=== PATIENT | male | born 1980 | race Caucasian/White ===

== ENCOUNTER 2023-09-13 22:16 | Inpatient (IN) | payer OTHER ==
[2023-09-13] MEDS: SODIUM CHLORIDE 0.9% 1,000 ML IV STA ×2 (22:40→23:05)
[2023-09-13 22:43] LABS: Basophils # (A) 0.1 k/uL (0-0.2); Basophils % (A) 2 %; Eosinophils # (A) 0.1 k/uL (0-0.7); Eosinophils % (A) 3 %; HCT 39.7 % (39.0-53.0); HGB 13.3 gm/dL (13.0-17.5); Lymphocytes # (A) 0.6 k/uL (1.0-4.8); Lymphocytes % (A) 19 %; MCH 34.4 pg (25.0-35.0); MCHC 33.6 g/dL (31.0-37.0); MCV 102.5 fL (80.0-100.0); Macrocytosis Slight; Mean Platelet Volume 10.1; Monocytes # (A) 0.3 k/uL (0-1.0); Monocytes % (A) 9 %; Neutrophils # (A) 2.2 k/uL (1.3-7.7); Neutrophils % (A) 65 %; RBC 3.87 m/uL (4.30-5.90); RDW 13.5 % (11.5-15.5); WBC 3.3 k/uL (3.8-10.6)
[2023-09-13] MEDS: LORazepam 2 MG/ML INJ IV STA ×2 (22:46→23:16)
[2023-09-13] MEDS: THIAMINE 100 MG/ML 2 ML VIAL IM STA (22:47)
--- NOTE | 2023-09-13 22:56 | ED ---
General Adult HPI - General Chief complaint: Alcohol Stated complaint: DT'S Time Seen by Provider: 09/13/23 22:21 Source: patient, EMS, RN notes reviewed, old records reviewed Mode of arrival: EMS - History of Present Illness Initial comments: Patient is a 43-year-old male who presents emergency department for alcohol withdrawals. Has a history of DTs. Last drink was 36 hours ago. He is not withdrawing from any other drugs at this time. States he was receiving oral Ativan which is the most they can do at [facility] however withdrawal symptoms seem to not be improving which is why presents for further evaluation at this time. Endorses mild nausea, occasional blurry vision, but denies any headaches. Endorses tremors. Endorses feeling weak. Has no other acute complaints at this time. Presents for further evaluation. Denies chest pain, abdominal pain, diarrhea, fevers, chills, cough. - Related Data Allergies Allergy/AdvReac Type Severity Reaction Status Date / Time No Known Allergies Allergy Verified 09/13/23 22:38 Review of Systems ROS Statement: Those systems with pertinent positive or pertinent negative responses have been documented in the HPI. Review of Systems: CONST: Denies fever EYES: Denies blurry vision ENT: Denies nasal congestion C/V: Denies Chest pain RESP: Denies shortness of breath GI: Endorses nausea : Denies dysuria SKIN: Denies rash. MSK: Denies joint pain. NEURO: Denies headache ROS Other: All systems not noted in ROS Statement are negative. Past Medical History Past Medical History: Hypertension Additional Past Medical History / Comment(s): pancreatitis History of Any Multi-Drug Resistant Organisms: None Reported Past Surgical History: Orthopedic Surgery Past Psychological History: ADD/ADHD Smoking Status: Never smoker Past Alcohol Use History: Abuse, Daily Past Drug Use History: Marijuana General Exam - General Exam Comments Initial Comments: General: Appears in no acute distress. HEAD: Normal with no signs of head trauma. EYES: PERRLA, EOMI, conjunctiva normal, no discharge. ENT: Hearing grossly intact, normal oropharynx. RESPIRATORY: Clear breath sounds bilaterally. No wheezes, rales, or rhonchi. C/V: Tachycardic. S1 and S2 auscultated, no edema, peripheral pulses 2+ and intact throughout ABD: Abd is soft, nontender, nondistended EXT: Normal range of motion, no obvious deformity SKIN: No rashes or lesions observed on exposed skin. NEURO: Alert and oriented x 4. Tremors in the peripheral extremities. No obvious tongue fasciculations. Course Vital Signs 09/13/23 22:20 Temperature 99.0 F Pulse Rate 114 H Respiratory 18 Rate Blood Pressure 121/90 O2 Sat by Pulse 95 Oximetry Medical Decision Making - Medical Decision Making Was pt. sent in by a medical professional or institution (, ANDREW, RESERVATIONIST, urgent care, hospital, or longterm...) When possible be specific @ -Sent from [facility] for evaluation for alcohol withdrawals. Did you speak to anyone other than the patient for history (EMS, parent, family, police, friend...)? What history was obtained from this source @ -No Did you review nursing and triage notes (agree or disagree)? Why? @ -I reviewed and agree with nursing and triage notes Were old charts reviewed (outside hosp., previous admission, EMS record, old EKG, old radiological studies, urgent care reports/EKG's, longterm records)? Report findings @ -Old charts reviewed Differential Diagnosis (chest pain, altered mental status, abdominal pain women, abdominal pain men, vaginal bleeding, weakness, fever, dyspnea, syncope, headache, dizziness, GI bleed, back pain, seizure, CVA, palpatations, mental health, musculoskeletal)? @ -Alcohol withdrawals, electrolyte abnormalities, DTs. This list is not all inclusive. EKG interpreted by me (3pts min.). @ -As above X-rays interpreted by me (1pt min.). @ -None done CT interpreted by me (1pt min.). @ -None done U/S interpreted by me (1pt. min.). @ -None done What testing was considered but not performed or refused? (CT, X-rays, U/S, labs)? Why? @ -None What meds were considered but not given or refused? Why? @ -None Did you discuss the management of the patient with other professionals (professionals i.e. ANDREW Rodríguez, RESERVATIONIST, lab, RT, psych nurse, addiction social worker, health service worker, teacher, civilian jail officer, assistant program manager)? Give summary @ -I spoke with NILSA Cross of [facility] who is city call who admitted and agreed to accept the patient. Was smoking cessation discussed for >3mins.? @ -No Was critical care preformed (if so, how long)? @ -No Were there social determinants of health that impacted care today? How? (Homelessness, low income, unemployed, alcoholism, drug addiction, transportatio n, low edu. Level, literacy, decrease access to med. care, nursing home, rehab)? @ -No Was there de-escalation of care discussed even if they declined (Discuss DNR or withdrawal of care, Hospice)? DNR status @ -No What co-morbidities impacted this encounter? (DM, HTN, Smoking, COPD, CAD, Cancer, CVA, ARF, Chemo, Hep., AIDS, mental health diagnosis, sleep apnea, morbid obesity)? @ -None Was patient admitted / discharged? Hospital course, mention meds given and route, prescriptions, significant lab abnormalities, going to OR and other pertinent info. @ -Based on patient's presentation and physical exam, presents with CIWA of approximately 10-12. Patient will be administered IV Ativan, 1 L fluid bolus and we will obtain laboratory studies and screening EKG. He was in agreement with this plan. He was placed on CIWA protocol. Patient in agreement with this plan. He will likely be admitted. Vital signs remarkable for tachycardia but otherwise within acceptable limits. EKG shows no signs of acute ischemia.Patient's laboratory studies remarkable for hypomagnesemia. Remainder the labs unremarkable. On reevaluation, patient is feeling improved. CIWA remains anywhere from 8 or 9- 11. We will administer additional Ativan and continue to monitor. He will be admitted. He is given IV magnesium. Patient in agreement this plan. I spoke with NILSA Cross of [facility] who is city call who admitted and agreed to accept the patient. Patient admitted on CIWA protocol. Undiagnosed new problem with uncertain prognosis? @ -No Drug Therapy requiring intensive monitoring for toxicity (Heparin, Nitro, Insulin, Cardizem)? @ -No Were any procedures done? @ -No Diagnosis/symptom? @ -Alcohol withdrawals, hypomagnesemia Acute, or Chronic, or Acute on Chronic? @ -Acute Uncomplicated (without systemic symptoms) or Complicated (systemic symptoms)? @ -Complicated Side effects of treatment? @ -None Exacerbation, Progression, or Severe Exacerbation] @ -No Poses a threat to life or bodily function? @ -Yes - Lab Data Result diagrams: 09/13/23 22:28 09/13/23 22:28 Lab Results 09/13/23 09/13/23 09/13/23 Range/Units 22:28 22:28 23:10 WBC 3.3 L (3.8-10.6) k/uL RBC 3.87 L (4.30-5.90) m/uL Hgb 13.3 (13.0-17.5) gm/dL Hct 39.7 (39.0-53.0) % MCV 102.5 H (80.0-100.0) fL MCH 34.4 (25.0-35.0) pg MCHC 33.6 (31.0-37.0) g/dL RDW 13.5 (11.5-15.5) % Plt Count 58 L (150-450) k/uL MPV 10.1 Neutrophils % 65 % Lymphocytes % 19 % Monocytes % 9 % Eosinophils % 3 % Basophils % 2 % Neutrophils # 2.2 (1.3-7.7) k/uL Lymphocytes # 0.6 L (1.0-4.8) k/uL Monocytes # 0.3 (0-1.0) k/uL Eosinophils # 0.1 (0-0.7) k/uL Basophils # 0.1 (0-0.2) k/uL Manual Slide Review Performed Large Platelets Present Macrocytosis Slight Sodium 134 L (137-145) mmol/L Potassium 4.2 (3.5-5.1) mmol/L Chloride 100 (98-107) mmol/L Carbon Dioxide 28 (22-30) mmol/L Anion Gap 6 mmol/L BUN 10 (9-20) mg/dL Creatinine 0.75 (0.66-1.25) mg/dL Est GFR (CKD-EPI)AfAm >90 (>60 ml/min/1.73 sqM) Est GFR (CKD-EPI)NonAf >90 (>60 ml/min/1.73 sqM) Glucose 138 H (74-99) mg/dL Calcium 9.2 (8.4-10.2) mg/dL Magnesium 0.8 L* (1.6-2.3) mg/dL Total Bilirubin 1.4 H (0.2-1.3) mg/dL AST 132 H (17-59) U/L ALT 27 (4-49) U/L Alkaline Phosphatase 116 (38-126) U/L Total Protein 7.2 (6.3-8.2) g/dL Albumin 4.1 (3.5-5.0) g/dL Urine Color Light Yellow Urine Appearance Clear (Clear) Urine pH 7.5 (5.0-8.0) Ur Specific [place] 1.007 (1.001-1.035) Urine Protein Trace H (Negative) Urine Glucose (UA) Negative (Negative) Urine Ketones Negative (Negative) Urine Blood Negative (Negative) Urine Nitrite Negative (Negative) Urine Bilirubin Negative (Negative) Urine Urobilinogen <2.0 (<2.0) mg/dL Ur Leukocyte Esterase Negative (Negative) Urine Opiates Screen Not Detected (NotDetected) Ur Oxycodone Screen Not Detected (NotDetected) Urine Methadone Screen Not Detected (NotDetected) Ur Barbiturates Screen Not Detected (NotDetected) U Tricyclic Antidepress Not Detected (NotDetected) Ur Phencyclidine Scrn Not Detected (NotDetected) Ur Amphetamines Screen Not Detected (NotDetected) U Methamphetamines Scrn Not Detected (NotDetected) U Benzodiazepines Scrn Detected H (NotDetected) Urine Cocaine Screen Not Detected (NotDetected) U Marijuana (THC) Screen Not Detected (NotDetected) Serum Alcohol <10 mg/dL - EKG Data -: EKG Interpreted by Me EKG Comments: 12-lead Electrocardiogram Interpretation Note EKG was reviewed and interpreted by myself. 12-lead ECG performed at 2228 is interpreted by me as revealing sinus tachycardia at a rate of 110 beats per minute. Left axis deviation. NH interval is 130 ms, QRS duration is 93 ms, QTc is 391 ms.. There were no ST or T wave abnormalities to suggest myocardial ischemia or injury. R wave progression across the precordium was satisfactory. By my interpretation this EKG is non-diagnostic for acute ischemia. Disposition Clinical Impression: Alcohol withdrawal, Hypomagnesemia Disposition: ADMITTED IP TO THIS [facility] Condition: Serious Referrals: Nonstaff,Physician [Primary Care Provider] - 1-2 days Time of Disposition: 00:15
[2023-09-13 22:57] LABS: ALT 27 U/L (4-49); African American GFR (CKD) >90 (>60 ml/min/1.73 sqM); Albumin 4.1 g/dL (3.5-5.0); Alcohol <10 mg/dL; Anion Gap 6 mmol/L; Blood Urea Nitrogen 10 mg/dL (9-20); Calcium 9.2 mg/dL (8.4-10.2); Carbon Dioxide 28 mmol/L (22-30); Chloride 100 mmol/L (98-107); Glucose 138 mg/dL (74-99); Non-African American GFR(CKD) >90 (>60 ml/min/1.73 sqM); Sodium 134 mmol/L (137-145); Total Bilirubin 1.4 mg/dL (0.2-1.3); Total Protein 7.2 g/dL (6.3-8.2)
[2023-09-13 23:03] LABS: AST 132 U/L (17-59); Alkaline Phosphatase 116 U/L (38-126); Magnesium 0.8 mg/dL (1.6-2.3); Potassium 4.2 mmol/L (3.5-5.1)
[2023-09-13 23:05] LABS: Large Platelets Present; Platelet Count 58 k/uL (150-450)
[2023-09-13] MEDS: ONDANSETRON 4 MG/2 ML VIAL IVP STA (23:05)
[2023-09-13 23:23] LABS: Appearance,Urine Clear (Clear); Bilirubin,Urine Negative (Negative); Blood,Urine Negative (Negative); Color,Urine Light Yellow; Glucose,Urine (UA) Negative (Negative); Ketones,Urine Negative (Negative); Leukocyte Esterase,Urine Negative (Negative); Nitrite,Urine Negative (Negative); PH, Urine 7.5 (5.0-8.0); Protein,Urine Trace (Negative); Specific Gravity,Urine 1.007 (1.001-1.035); Urobilinogen,Urine <2.0 mg/dL (<2.0)
[2023-09-13 23:32] LABS: Amphetamine Screen,Urine Not Detected (NotDetected); Barbiturate Screen,Urine Not Detected (NotDetected); Benzodiazepines Screen,Urine Detected (NotDetected); Cocaine Screen,Urine Not Detected (NotDetected); Methadone Screen, Urine Not Detected (NotDetected); Opiate Screen,Urine Not Detected (NotDetected); Oxycodone Screen, Urine Not Detected (NotDetected); Phencyclidine Screen,Urine Not Detected (NotDetected); Tricyclic Antidepressant,Urine Not Detected (NotDetected); Urn Cannabinoid Scrn Not Detected (NotDetected)
[2023-09-13] MEDS: MAGNESIUM SULFATE-D5W PMX 1 GM in DEXTROSE/WATER 1 100ML.BAG IVPB SCH (23:50)
[2023-09-14] MEDS ORDERED: NALOXONE 0.4 MG/ML 1 ML VIAL IV PRN (00:16)
[2023-09-14] MEDS: LORazepam 2 MG/ML INJ IV STA (00:30)
[2023-09-14] MEDS: LORazepam 2 MG/ML INJ IV PRN ×3 (02:17→10:22)
[2023-09-14] MEDS: chlordiazePOXIDE 25 MG CAP PO SCH (05:34)
[2023-09-14] MEDS: HALOPERIDOL LACTATE 5 MG/ML 1 ML VIAL IVP STA (06:12)
[2023-09-14] MEDS: THIAMINE 100 MG TAB PO SCH (08:28)
[2023-09-14] MEDS: DEXMEDETOMIDINE/0.9% NACL(PMX) 400 MCG in EMPTY BAG 1 BAG IV SCH (10:30)
--- NOTE | 2023-09-14 10:38 | P.CNPUL ---
History of Present Illness Consult date: 09/14/23 Requesting physician: Quinn Ken Reason for consult: other (Critical care management) Chief complaint: Alcohol withdrawal, delirium tremens History of present illness: This is a 43-year-old male patient with a known history of hypertension and pancreatitis and alcohol dependence. He was at [facility] but developed delirium tremens and alcohol withdrawal syndrome and was brought here to the emergency room by EMS last evening. He is seen in consultation in the emergency department. He is currently sedated. He has received 7 mg of Ativan thus far. 1 mg of Haldol. He had remained restless. The plan is to admit to the intensive care unit and utilize Precedex infusion. White count 3.3. Hemoglobin 13.3. MCV 102.5. Platelets 58,000. Sodium 134. Potassium 4.2. Bicarb 28. BUN 10. Creatinine 0.75. Glucose 138. AST 132. ALT 27. Urine drug screen positive for benzodiazepines. Serum alcohol level was less than 10. He is currently maintaining good O2 saturations in the 90s on room air. He is afebrile. Hemodynamically stable. Review of Systems ROS unobtainable: due to mental status Past Medical History Past Medical History: Hypertension Additional Past Medical History / Comment(s): pancreatitis History of Any Multi-Drug Resistant Organisms: None Reported Past Surgical History: Orthopedic Surgery Past Psychological History: ADD/ADHD Smoking Status: Never smoker Past Alcohol Use History: Abuse, Daily Past Drug Use History: Marijuana Medications and Allergies Home Medications Medication Instructions Recorded Confirmed Type Acetaminophen [Tylenol] 650 mg PO Q4H 09/14/23 09/14/23 History Calcium/Magnesium/Zinc/Bere D 1 tab PO TID PRN 09/14/23 09/14/23 History Chlorpheniramine Maleate 4 mg PO Q4H PRN 09/14/23 09/14/23 History [Chlor-Trimeton] Docusate [Colace] 100 mg PO BID PRN 09/14/23 09/14/23 History Hyoscyamine Sulfate [Levsin] 0.125 mg PO QID PRN 09/14/23 09/14/23 History Ibuprofen [Motrin Ib] 600 mg PO Q6H PRN 09/14/23 09/14/23 History LORazepam [Ativan] 1 - 2 mg PO Q4H 09/14/23 09/14/23 History Loperamide HCl [Imodium A-D] 4 mg PO BID PRN 09/14/23 09/14/23 History Mag Hydrox/Aluminum Hyd/Simeth 30 ml PO Q4H PRN 09/14/23 09/14/23 History [Mylanta Maximum Strength Liq] Multivitamins, Thera [Multivitamin 1 tab PO DAILY 09/14/23 09/14/23 History (formulary)] Thiamine [Vitamin B-1] 100 mg PO DAILY 09/14/23 09/14/23 History cloNIDine HCL [Catapres] 0.1 - 0.3 mg PO Q4H PRN 09/14/23 09/14/23 History ondansetron HCL [Zofran] 8 mg PO Q6H PRN 09/14/23 09/14/23 History traZODone HCL [Desyrel] 50 - 150 mg PO HS PRN 09/14/23 09/14/23 History Allergies Allergy/AdvReac Type Severity Reaction Status Date / Time No Known Allergies Allergy Verified 09/14/23 07:36 Physical Exam Vitals: Vital Signs Temp Pulse Resp BP Pulse Ox 09/14/23 05:00 82 18 157/118 96 09/14/23 02:00 98 17 131/102 95 09/13/23 23:27 105 H 22 119/82 97 09/13/23 22:20 99.0 F 114 H 18 121/90 95 Intake and Output 09/13/23 09/14/23 09/14/23 22:59 06:59 14:59 Other: Weight 81.647 kg GENERAL EXAM: Sedated, 43-year-old male patient, on room air, currently comfortable in no apparent distress. HEAD: Normocephalic. EYES: Normal reaction of pupils, equal size. NOSE: Clear with pink turbinates. THROAT: No erythema or exudates. NECK: No masses, no JVD. CHEST: No chest wall deformity. LUNGS: Equal air entry with no crackles, wheeze, rhonchi or dullness. CVS: S1 and S2 normal with no audible murmur, regular rhythm. ABDOMEN: No hepatosplenomegaly, normal bowel sounds, no guarding or rigidity. SPINE: No scoliosis or deformity SKIN: No rashes CENTRAL NERVOUS SYSTEM: No focal deficits, tone is normal in all 4 extremities. EXTREMITIES: There is no peripheral edema. No clubbing, no cyanosis. Peripheral pulses are intact. Results - Laboratory Findings CBC and BMP: 09/13/23 22:28 09/13/23 22:28 Abnormal lab findings: Abnormal Labs 09/13/23 09/13/23 09/13/23 22:28 22:28 23:10 WBC 3.3 L RBC 3.87 L MCV 102.5 H Plt Count 58 L Lymphocytes # 0.6 L Sodium 134 L Glucose 138 H Magnesium 0.8 L* Total Bilirubin 1.4 H AST 132 H Urine Protein Trace H U Benzodiazepines Scrn Detected H Assessment and Plan Assessment: Acute alcohol withdrawal syndrome with delirium tremens History of alcohol abuse, transferred here from [facility] Transaminitis secondary to above Thrombocytopenia secondary to above History of hypertension History of pancreatitis Plan: The patient was seen and evaluated Labs and medications reviewed Initiate Precedex infusion Initiate CIWA protocol Obtain a chest x-ray Observe for seizures Check an amylase, lipase Monitor closely in the intensive care unit We will continue to follow and make further recommendations based on his clinical status I have personally seen and examined the patient, performed the documentation and the assessment and plan as written. Number of minutes spent on the visit: 20.
--- NOTE | 2023-09-14 12:32 | XR ---
EXAMINATION TYPE: XR chest 1V portable DATE OF EXAM: 09/14/2023 Comparison: None Clinical History: 43-year-old male aspiration Findings: Heart normal size. Aorta and pulmonary vasculature within normal limits. No consolidation or pleural effusion. Impression: No acute cardiopulmonary process.
--- NOTE | 2023-09-14 12:55 | P.HPIM ---
History of Present Illness H&P Date: 09/14/23 This is a 43-year-old male who presented to the emergency department from [place] with alcohol withdrawal with history of DTs in the past. Patient reports last drink was 1-1/2 days ago and had been maintained on oral Ativan although the withdrawal symptoms became too severe and brought to the hospital for further evaluation. Patient placed on CIWA protocol and also noted to have significant severe hypomagnesemia with a magnesium of 0.8. Patient was given protocol replacement and repeat labs are pending at this time. Patient being admitted to the ICU with impending withdrawals and Precedex drip is being ordered. Weather[employer] Machine Operator following. Patient normally lives in the [facility] a nd has a primary care provider in that area and was here for rehab. CBC within normal limits, sodium 134, potassium 4.2, creatinine 0.75, random glucose 138, magnesium 0.8, total bili 1.4 with an AST of 132, urine drug screen was positive for benzos and alcohol serum level was less than 10. Patient started on CIWA protocol and again being brought to the ICU for Precedex drip as patient has been requiring large amounts of Ativan. Patient has a past medical history of hypertension, pancreatitis, ADD/ADHD with severe alcohol abuse. EKG revealed sinus tachycardia and chest x-ray showing no acute cardiopulmonary process REVIEW OF SYSTEMS: Unable to completely assess as patient is sedated on Ativan The rest of the 14-point review of systems is negative. PHYSICAL EXAMINATION: GENERAL: The patient is alert and oriented x 1 although extremely lethargic maintained on IV Ativan, not in any acute distress and sleeping. Well developed, well nourished. HEENT: Pupils are round and equally reacting to light. EOMI. No scleral icterus. No conjunctival pallor. Normocephalic, atraumatic. No pharyngeal erythema. No thyromegaly. CARDIOVASCULAR: S1 and S2 present. No murmurs, rubs, or gallops. PULMONARY: Chest is clear to auscultation, no wheezing or crackles. ABDOMEN: Soft, nontender, nondistended, normoactive bowel sounds. No palpable organomegaly. MUSCULOSKELETAL: No joint swelling or deformity. EXTREMITIES: No cyanosis, clubbing, or pedal edema. NEUROLOGICAL: Gross neurological examination did not reveal any focal deficits. SKIN: No rashes. Assessment: Acute alcohol withdrawal with acute delirium tremens history of continued alcohol abuse, was at [place] and sent here for withdrawals History of pancreatitis Hypertension history Severe hypomagnesemia, magnesium was 0.8 on admission secondary to alcohol use GI prophylaxis DVT prophylaxis Full code Plan: Patient is being admitted to the ICU as patient has required large amounts of Ativan including Haldol. Librium taper has been initiated and patient continues on CIWA protocol Patient being started on Precedex for continued withdrawals Will resume appropriate home medications once more awake and tolerating diet Magnesium was replaced with 2 g in the ER although no repeat labs were drawn. Repeat stat magnesium level was ordered and remains pending. Will follow-up Follow-up on repeat labs Discussed with case management/social work on discharge planning as patient will be returning to [place] for continued rehab The impression and plan of care has been dictated by Hope Rutherford, nurse practitioner as directed. Dr. Rebekah MD I have performed a history and examination and MDM of this patient, discussed the same with the dictator, and agree with the dictator's assessment and plan as written ,documented as a scribe. Based on total visit time, I have performed more than 50% of the visit. Any additional findings or plans will be noted. Past Medical History Past Medical History: Hypertension Additional Past Medical History / Comment(s): pancreatitis History of Any Multi-Drug Resistant Organisms: None Reported Past Surgical History: Orthopedic Surgery Past Psychological History: ADD/ADHD Smoking Status: Never smoker Past Alcohol Use History: Abuse, Daily Past Drug Use History: Marijuana Medications and Allergies Home Medications Medication Instructions Recorded Confirmed Type Acetaminophen [Tylenol] 650 mg PO Q4H 09/14/23 09/14/23 History Calcium/Magnesium/Zinc/Bere D 1 tab PO TID PRN 09/14/23 09/14/23 History Chlorpheniramine Maleate 4 mg PO Q4H PRN 09/14/23 09/14/23 History [Chlor-Trimeton] Docusate [Colace] 100 mg PO BID PRN 09/14/23 09/14/23 History Hyoscyamine Sulfate [Levsin] 0.125 mg PO QID PRN 09/14/23 09/14/23 History Ibuprofen [Motrin Ib] 600 mg PO Q6H PRN 09/14/23 09/14/23 History LORazepam [Ativan] 1 - 2 mg PO Q4H 09/14/23 09/14/23 History Loperamide HCl [Imodium A-D] 4 mg PO BID PRN 09/14/23 09/14/23 History Mag Hydrox/Aluminum Hyd/Simeth 30 ml PO Q4H PRN 09/14/23 09/14/23 History [Mylanta Maximum Strength Liq] Multivitamins, Thera [Multivitamin 1 tab PO DAILY 09/14/23 09/14/23 History (formulary)] Thiamine [Vitamin B-1] 100 mg PO DAILY 09/14/23 09/14/23 History cloNIDine HCL [Catapres] 0.1 - 0.3 mg PO Q4H PRN 09/14/23 09/14/23 History ondansetron HCL [Zofran] 8 mg PO Q6H PRN 09/14/23 09/14/23 History traZODone HCL [Desyrel] 50 - 150 mg PO HS PRN 09/14/23 09/14/23 History Allergies Allergy/AdvReac Type Severity Reaction Status Date / Time No Known Allergies Allergy Verified 09/14/23 07:36 Physical Exam Vitals: Vital Signs Temp Pulse Resp BP Pulse Ox 09/14/23 05:00 82 18 157/118 96 09/14/23 02:00 98 17 131/102 95 09/13/23 23:27 105 H 22 119/82 97 09/13/23 22:20 99.0 F 114 H 18 121/90 95 Intake and Output 09/13/23 09/14/23 09/14/23 22:59 06:59 14:59 Other: Weight 81.647 kg Results CBC & Chem 7: 09/13/23 22:28 09/13/23 22:28 Labs: Abnormal Lab Results - Last 24 Hours (Table) 09/13/23 09/13/23 09/13/23 Range/Units 22:28 22:28 23:10 WBC 3.3 L (3.8-10.6) k/uL RBC 3.87 L (4.30-5.90) m/uL MCV 102.5 H (80.0-100.0) fL Plt Count 58 L (150-450) k/uL Lymphocytes # 0.6 L (1.0-4.8) k/uL Sodium 134 L (137-145) mmol/L Glucose 138 H (74-99) mg/dL Magnesium 0.8 L* (1.6-2.3) mg/dL Total Bilirubin 1.4 H (0.2-1.3) mg/dL AST 132 H (17-59) U/L Urine Protein Trace H (Negative) U Benzodiazepines Scrn Detected H (NotDetected)
[2023-09-14 13:27] LABS: Basophils % (A) 1 %; Eosinophils # (A) 0.1 k/uL (0-0.7); Eosinophils % (A) 5 %; HCT 39.9 % (39.0-53.0); HGB 13.1 gm/dL (13.0-17.5); Lymphocytes # (A) 0.6 k/uL (1.0-4.8); Lymphocytes % (A) 24 %; MCH 34.7 pg (25.0-35.0); MCHC 32.9 g/dL (31.0-37.0); MCV 105.4 fL (80.0-100.0); Macrocytosis Slight; Mean Platelet Volume 10.3; Monocytes # (A) 0.2 k/uL (0-1.0); Monocytes % (A) 9 %; Neutrophils # (A) 1.5 k/uL (1.3-7.7); Neutrophils % (A) 57 %; RBC 3.78 m/uL (4.30-5.90); RDW 13.4 % (11.5-15.5); WBC 2.6 k/uL (3.8-10.6)
[2023-09-14 13:31] LABS: Platelet Count 61 k/uL (150-450)
[2023-09-14] MEDS: SODIUM CHLORIDE 0.9% 1,000 ML IV SCH (13:38)
[2023-09-14 13:40] LABS: African American GFR (CKD) >90 (>60 ml/min/1.73 sqM); Amylase 85 U/L (30-110); Anion Gap 8 mmol/L; Blood Urea Nitrogen 5 mg/dL (9-20); Calcium 8.9 mg/dL (8.4-10.2); Carbon Dioxide 26 mmol/L (22-30); Chloride 106 mmol/L (98-107); Glucose 109 mg/dL (74-99); Lipase 101 U/L (23-300); Magnesium 1.5 mg/dL (1.6-2.3); Non-African American GFR(CKD) >90 (>60 ml/min/1.73 sqM); Potassium 3.3 mmol/L (3.5-5.1); Sodium 140 mmol/L (137-145)
[2023-09-14] MEDS: PANTOPRAZOLE 40 MG/10 ML VIAL IVP SCH (15:01)
[2023-09-14 15:16] LABS: Glucose,Whole Blood 109 mg/dL (70-110)
[2023-09-14] MEDS ORDERED: Potassium Replacement Protocol 1 EACH MISC MISCELLANE PRN (15:39)
[2023-09-14] MEDS: POTASSIUM CHLORIDE 10 MEQ in WATER FOR INJECTION 1 100ML.BAG IVPB SCH (15:47)
[2023-09-14] MEDS: IBUPROFEN 400 MG TAB PO PRN (17:05)
[2023-09-14 20:37] LABS: Glucose,Whole Blood 169 mg/dL (70-110)
[2023-09-15] MEDS ORDERED: Magnesium Replacement Protocol 1 EACH MISC MISCELLANE PRN ×2 (00:26→05:56)
[2023-09-15] MEDS ORDERED: Potassium Replacement Protocol 1 EACH MISC MISCELLANE PRN ×2 (00:26→04:32)
[2023-09-15] MEDS: MAGNESIUM SULFATE-D5W PMX 1 GM in DEXTROSE/WATER 1 100ML.BAG IVPB SCH ×2 (03:05→06:09)
[2023-09-15] MEDS: POTASSIUM CHLORIDE 10 MEQ in WATER FOR INJECTION 1 100ML.BAG IVPB SCH (03:06)
[2023-09-15 04:17] LABS: Basophils % (A) 2 %; Eosinophils # (A) 0.2 k/uL (0-0.7); Eosinophils % (A) 8 %; HCT 39.7 % (39.0-53.0); HGB 12.9 gm/dL (13.0-17.5); Lymphocytes # (A) 0.8 k/uL (1.0-4.8); Lymphocytes % (A) 32 %; MCH 34.5 pg (25.0-35.0); MCHC 32.6 g/dL (31.0-37.0); MCV 105.6 fL (80.0-100.0); Macrocytosis Moderate; Monocytes # (A) 0.2 k/uL (0-1.0); Monocytes % (A) 8 %; Neutrophils # (A) 1.3 k/uL (1.3-7.7); Neutrophils % (A) 48 %; RBC 3.75 m/uL (4.30-5.90); RDW 13.5 % (11.5-15.5); WBC 2.7 k/uL (3.8-10.6)
[2023-09-15 04:27] LABS: African American GFR (CKD) >90 (>60 ml/min/1.73 sqM); Anion Gap 3 mmol/L; Blood Urea Nitrogen 6 mg/dL (9-20); Carbon Dioxide 25 mmol/L (22-30); Chloride 108 mmol/L (98-107); Glucose 105 mg/dL (74-99); Non-African American GFR(CKD) >90 (>60 ml/min/1.73 sqM); Potassium 3.9 mmol/L (3.5-5.1); Sodium 136 mmol/L (137-145)
[2023-09-15 04:36] LABS: Platelet Count 65 k/uL (150-450)
[2023-09-15] MEDS: POTASSIUM CHLORIDE ER 20 MEQ TAB.ER PO SCH (06:09)
--- NOTE | 2023-09-15 12:33 | P.PN ---
Subjective Progress Note Date: 09/15/23 Principal diagnosis: Acute alcohol withdrawal This is a 43-year-old male patient with a known history of hypertension and pancreatitis and alcohol dependence. He was at [facility] but developed delirium tremens and alcohol withdrawal syndrome and was brought here to the emergency room by EMS last evening. He is seen in consultation in the emergency department. He is currently sedated. He has received 7 mg of Ativan thus far. 1 mg of Haldol. He had remained restless. The plan is to admit to the intensive care unit and utilize Precedex infusion. White count 3.3. Hemoglobin 13.3. MCV 102.5. Platelets 58,000. Sodium 134. Potassium 4.2. Bicarb 28. BUN 10. Creatinine 0.75. Glucose 138. AST 132. ALT 27. Urine drug screen positive for benzodiazepines. Serum alcohol level was less than 10. He is currently maintaining good O2 saturations in the 90s on room air. He is afebrile. Hemodynamically stable. Patient was reevaluated today on 09/15/2023, patient was transferred to the ICU yesterday, he is now off Precedex since 7 AM this morning, his alcohol withdrawal is easily handled with Ativan, following the CIWA protocol. Remains a bit shaky, but overall the patient is doing better. WBC count is 2.7 hemoglobin 12.9 basic metabolic profile is normal renal profile is normal. Patient is on room air, hemodynamically stable, not in any distress. Hence we will arrange for the patient to be transferred to the medical surgical floor today Objective - Vital Signs Vital signs: Vital Signs Temp 98.2 F 09/15/23 08:00 Pulse 67 09/15/23 09:00 Resp 17 09/15/23 09:00 BP 106/82 09/15/23 09:00 Pulse Ox 96 09/15/23 08:00 FiO2 Intake & Output 09/14/23 09/15/23 09/15/23 18:59 06:59 18:59 Intake Total 864.786 5044.293 573.982 Output Total 0 1000 1000 Balance 628.580 2191.293 -426.018 Weight 77.6 kg Intake: IV 275 1175 150 Potassium Chloride 10 meq 200 200 In Water For Injection 1 100ml.bag @ 100 mls/hr IVPB Q1HR [facility] Rx#: [id number] Sodium Chloride 0.9% 1, 75 975 150 000 ml @ 75 mls/hr IV . [id number] [facility] Rx#:[id number] Intake, IV Titration 26.193 6.293 23.982 Amount Dexmedetomidine/0.9% NaCl 26.193 6.293 23.982 (Pmx) 400 mcg In Empty Bag 1 bag @ 0.2 MCG/KG/HR 4.082 mls/hr IV .Q24H [facility] Rx#:[id number] Oral 200 1000 400 Output: Urine 0 1000 1000 Other: Voiding Method Urinal Urinal - Exam General: The patient is awake and alert, in no distress, and does not appear acutely ill. Skin: Skin is warm and dry and no rashes or lesions are noted. Eye: Pupils are equal, round and reactive to light, extra-ocular movements are intact; there is normal conjunctiva bilaterally. Ears, nose, mouth and throat: There are moist mucous membranes and no oral lesions. Neck: The neck is supple, there is no tenderness or JVD. Cardiovascular: There is a regular rate and rhythm. No murmur, rub or gallop is appreciated. Respiratory: Clear throughout no crackles rhonchi or wheezes Gastrointestinal: Soft, non-distended, non-tender abdomen without masses or organomegaly noted. There is no rebound or guarding present. Bowel sounds are un remarkable. Back: There is no tenderness to palpation in the midline. There is no obvious deformity. Musculoskeletal: Normal ROM, no tenderness, There is no pedal edema. There is no calf tenderness or swelling. No cords were appreciated. Neurological: Alert oriented x 3 no gross focal deficit Psychiatric: Anxious, normal affect and normal mental status examination. - Labs CBC & Chem 7: 09/15/23 03:55 09/15/23 03:55 Labs: Abnormal Lab Results - Last 24 Hours (Table) 09/14/23 09/14/23 09/14/23 Range/Units 13:00 13:00 20:36 WBC 2.6 L (3.8-10.6) k/uL RBC 3.78 L (4.30-5.90) m/uL Hgb (13.0-17.5) gm/dL MCV 105.4 H (80.0-100.0) fL Plt Count 61 L (150-450) k/uL Lymphocytes # 0.6 L (1.0-4.8) k/uL Sodium (137-145) mmol/L Potassium 3.3 L (3.5-5.1) mmol/L Chloride (98-107) mmol/L BUN 5 L (9-20) mg/dL Creatinine 0.60 L (0.66-1.25) mg/dL Glucose 109 H (74-99) mg/dL POC Glucose (mg/dL) 169 H (70-110) mg/dL Magnesium 1.5 L (1.6-2.3) mg/dL 09/15/23 09/15/23 09/15/23 Range/Units 03:55 03:55 03:55 WBC 2.7 L (3.8-10.6) k/uL RBC 3.75 L (4.30-5.90) m/uL Hgb 12.9 L (13.0-17.5) gm/dL MCV 105.6 H (80.0-100.0) fL Plt Count 65 L (150-450) k/uL Lymphocytes # 0.8 L (1.0-4.8) k/uL Sodium 136 L (137-145) mmol/L Potassium (3.5-5.1) mmol/L Chloride 108 H (98-107) mmol/L BUN 6 L (9-20) mg/dL Creatinine 0.60 L (0.66-1.25) mg/dL Glucose 105 H (74-99) mg/dL POC Glucose (mg/dL) (70-110) mg/dL Magnesium 1.4 L (1.6-2.3) mg/dL Assessment and Plan Assessment: Impression: Acute alcohol withdrawal syndrome with delirium tremens History of alcohol abuse, transferred here from [facility] Transaminitis secondary to above Thrombocytopenia secondary to above History of hypertension History of pancreatitis Recommendation: Continue CIWA protocol. Transfer patient to the medical surgical floor Continue to monitor labs daily Continue seizure precautions Will continue to follow Time with Patient: Less than 30
--- NOTE | 2023-09-15 14:31 | P.PN ---
Subjective Progress Note Date: 09/15/23 This is a 43-year-old male who presented to the emergency department from [place] with alcohol withdrawal with history of DTs in the past. Patient reports last drink was 1-1/2 days ago and had been maintained on oral Ativan although the withdrawal symptoms became too severe and brought to the hospital for further evaluation. Patient placed on CIWA protocol and also noted to have significant severe hypomagnesemia with a magnesium of 0.8. Patient was given protocol replacement and repeat labs are pending at this time. Patient being admitted to the ICU with impending withdrawals and Precedex drip is being ordered. [place] following. Patient normally lives in the [facility] and has a primary care provider in that area and was here for rehab. CBC within normal limits, sodium 134, potassium 4.2, creatinine 0.75, random glucose 138, magnesium 0.8, total bili 1.4 with an AST of 132, urine drug screen was positive for benzos and alcohol serum level was less than 10. Patient started on CIWA protocol and again being brought to the ICU for Precedex drip as patient has been requiring large amounts of Ativan. Patient has a past medical history of hypertension, pancreatitis, ADD/ADHD with severe alcohol abuse. EKG revealed sinus tachycardia and chest x-ray showing no acute cardiopulmonary process 09/15/2023 Patient is seen and evaluated in follow-up continues to be in the ICU although as a downgrade once a bed on 3 S. becomes available. Patient is continued on CIWA protocol and is off Precedex and mentation is improved. Patient continues with significant withdrawals and most recent CIWA score was 5 maintained on IV Ativan and also has been started on Librium taper. Patient is afebrile denies chest pain or shortness of breath and is tolerating diet. Patient with significant weakness recommend monitoring over the next few days on CIWA protocol for improvements in symptoms and withdrawals and hopeful for return to inpatient alcohol rehab by Monday at [place]. Patient would like to return to rehab to continue. Review of systems: Constitutional: No reports of fatigue, fever, or chills Cardiovascular: No reports of chest pain or palpitations Respiratory: No reports of shortness of breath or cough GI: No reports of nausea, vomiting, or diarrhea : No reports of dysuria or retention Neurovascular: reports of generalized weakness All medications have been reviewed PHYSICAL EXAMINATION: GENERAL: The patient is alert and oriented x 3 awake, not in any acute distress. Well developed, well nourished. Tremens noted diffusely weak HEENT: Pupils are round and equally reacting to light. EOMI. No scleral icterus. No conjunctival pallor. Normocephalic, atraumatic. No pharyngeal erythema. No thyromegaly. CARDIOVASCULAR: S1 and S2 present. No murmurs, rubs, or gallops. PULMONARY: Chest is clear to auscultation, no wheezing or crackles. ABDOMEN: Soft, nontender, nondistended, normoactive bowel sounds. No palpable organomegaly. MUSCULOSKELETAL: No joint swelling or deformity. EXTREMITIES: No cyanosis, clubbing, or pedal edema. NEUROLOGICAL: Gross neurological examination did not reveal any focal deficits. SKIN: No rashes. Assessment: Acute alcohol withdrawal with acute delirium tremens history of continued alcohol abuse, was at [place] and sent here for withdrawals History of pancreatitis Hypertension history Severe hypomagnesemia, magnesium was 0.8 on admission secondary to alcohol use GI prophylaxis DVT prophylaxis Full code Plan: Patient is currently being closely monitored in the ICU as patient has required large amounts of Ativan and Precedex. Precedex has been turned off and patient is a downgrade out of the ICU once a bed on 3 S. becomes available.. Librium taper has been initiated and patient continues on CIWA protocol Will resume appropriate home medications once more awake and tolerating diet Magnesium was replaced although remains low at 1.4 being replaced and will follow-up with repeat labs Discussed with case management/social work on discharge planning as patient will be returning to [place] for continued rehab The impression and plan of care has been dictated by Hope Rutherford, nurse practitioner as directed. Dr. Rebekah MD I have performed a history and examination and MDM of this patient, discussed the same with the dictator, and agree with the dictator's assessment and plan as written ,documented as a scribe. Based on total visit time, I have performed more than 50% of the visit. Any additional findings or plans will be noted. Objective - Vital Signs Vital signs: Vital Signs Temp 98.2 F 09/15/23 08:00 Pulse 67 09/15/23 09:00 Resp 17 02/16/24 09:00 BP 106/82 09/15/23 09:00 Pulse Ox 96 09/15/23 08:00 FiO2 Intake & Output 09/14/23 09/15/23 09/15/23 18:59 06:59 18:59 Intake Total 545.872 3243.293 573.982 Output Total 0 1000 2000 Balance 577.268 1237.293 -1426.018 Weight 77.6 kg Intake: IV 275 1175 150 Potassium Chloride 10 meq 200 200 In Water For Injection 1 100ml.bag @ 100 mls/hr IVPB Q1HR [facility] Rx#: [id number] Sodium Chloride 0.9% 1, 75 975 150 000 ml @ 75 mls/hr IV . [id number] [facility] Rx#:[id number] Intake, IV Titration 26.193 6.293 23.982 Amount Dexmedetomidine/0.9% NaCl 26.193 6.293 23.982 (Pmx) 400 mcg In Empty Bag 1 bag @ 0.2 MCG/KG/HR 4.082 mls/hr IV .Q24H [facility] Rx#:[id number] Oral 200 1000 400 Output: Urine 0 1000 2000 Other: Voiding Method Urinal Urinal - Labs CBC & Chem 7: 09/15/23 03:55 09/15/23 03:55 Labs: Abnormal Lab Results - Last 24 Hours (Table) 09/14/23 09/15/23 09/15/23 Range/Units 20:36 03:55 03:55 WBC 2.7 L (3.8-10.6) k/uL RBC 3.75 L (4.30-5.90) m/uL Hgb 12.9 L (13.0-17.5) gm/dL MCV 105.6 H (80.0-100.0) fL Plt Count 65 L (150-450) k/uL Lymphocytes # 0.8 L (1.0-4.8) k/uL Sodium 136 L (137-145) mmol/L Chloride 108 H (98-107) mmol/L BUN 6 L (9-20) mg/dL Creatinine 0.60 L (0.66-1.25) mg/dL Glucose 105 H (74-99) mg/dL POC Glucose (mg/dL) 169 H (70-110) mg/dL Magnesium (1.6-2.3) mg/dL 09/15/23 Range/Units 03:55 WBC (3.8-10.6) k/uL RBC (4.30-5.90) m/uL Hgb (13.0-17.5) gm/dL MCV (80.0-100.0) fL Plt Count (150-450) k/uL Lymphocytes # (1.0-4.8) k/uL Sodium (137-145) mmol/L Chloride (98-107) mmol/L BUN (9-20) mg/dL Creatinine (0.66-1.25) mg/dL Glucose (74-99) mg/dL POC Glucose (mg/dL) (70-110) mg/dL Magnesium 1.4 L (1.6-2.3) mg/dL
[2023-09-15] MEDS: traZODone HCL 50 MG TAB PO PRN (21:03)
[2023-09-16 06:54] LABS: HCT 38.5 % (39.0-53.0); HGB 12.8 gm/dL (13.0-17.5); MCH 34.5 pg (25.0-35.0); MCHC 33.4 g/dL (31.0-37.0); MCV 103.5 fL (80.0-100.0); Macrocytosis Slight; Mean Platelet Volume 10.1; RBC 3.72 m/uL (4.30-5.90); RDW 13.8 % (11.5-15.5); WBC 4.1 k/uL (3.8-10.6)
[2023-09-16 06:58] LABS: Platelet Count 93 k/uL (150-450)
[2023-09-16 08:01] LABS: African American GFR (CKD) >90 (>60 ml/min/1.73 sqM); Anion Gap 8 mmol/L; Blood Urea Nitrogen 8 mg/dL (9-20); Calcium 9.2 mg/dL (8.4-10.2); Carbon Dioxide 24 mmol/L (22-30); Chloride 104 mmol/L (98-107); Glucose 98 mg/dL (74-99); Magnesium 1.5 mg/dL (1.6-2.3); Non-African American GFR(CKD) >90 (>60 ml/min/1.73 sqM); Potassium 3.7 mmol/L (3.5-5.1); Sodium 136 mmol/L (137-145)
[2023-09-16 08:41] LABS: Eosinophils # (M) 0.16 k/uL (0-0.7); Lymphocytes # (M) 0.98 k/uL (1.0-4.8); Monocytes # (M) 0.37 k/uL (0-1.0); Neutrophils # (M) 2.58 k/uL (1.3-7.7); Neutrophils % (M) 63 %; Nucleated Red Blood Cells 0 /100 WBC (0-0); Total Cells Counted 100
[2023-09-16] MEDS: MAGNESIUM SULFATE-D5W PMX 1 GM in DEXTROSE/WATER 1 100ML.BAG IVPB SCH (09:57)
--- NOTE | 2023-09-16 13:51 | P.PN ---
Subjective Progress Note Date: 09/16/23 This is a 43-year-old male patient with a known history of hypertension and pancreatitis and alcohol dependence. He was at [facility] but developed delirium tremens and alcohol withdrawal syndrome and was brought here to the emergency room by EMS last evening. He is seen in [facility] in the emergency department. He is currently sedated. He has received 7 mg of Ativan thus far. 1 mg of Haldol. He had remained restless. The plan is to admit to the intensive care unit and utilize Precedex infusion. White count 3.3. Hemoglobin 13.3. MCV 102.5. Platelets 58,000. Sodium 134. Potassium 4.2. Bicarb 28. BUN 10. Creatinine 0.75. Glucose 138. AST 132. ALT 27. Urine drug screen positive for benzodiazepines. Serum alcohol level was less than 10. He is currently maintaining good O2 saturations in the 90s on room air. He is afebrile. Hemodynamically stable. Patient was reevaluated today on 09/15/2023, patient was transferred to the ICU yesterday, he is now off Precedex since 7 AM this morning, his alcohol withdrawal is easily handled with Ativan, following the CIWA protocol. Remains a bit shaky, but overall the patient is doing better. WBC count is 2.7 hemoglobin 12.9 basic metabolic profile is normal renal profile is normal. Patient is on room air, hemodynamically stable, not in any distress. Hence we will arrange for the patient to be transferred to the medical surgical floor today The patient is seen today September 16, 2023 in follow-up on the regular medical floor. He is currently sitting up in bed. Awake and alert in no acute dist ress. He is maintaining O2 saturations in the 90s on room air. He states he is feeling better just a little shaky. He remains on the CIWA protocol. White count 4.1. Hemoglobin 12.8. MCV 103.5. Platelets 93,000. Sodium 136. Potassium 3.7. Bicarb 24. BUN 8. Creatinine 0.69. Protonix for GI prophylaxis. Objective - Vital Signs Vital signs: Vital Signs Temp 97.5 F L 09/16/23 07:27 Pulse 93 09/16/23 07:27 Resp 20 09/16/23 07:27 BP 124/81 09/16/23 07:27 Pulse Ox 100 02/17/24 07:27 FiO2 Intake & Output 09/15/23 09/16/23 09/16/23 18:59 06:59 18:59 Intake Total 857.924 8817 Output Total 3200 400 Balance -2626.018 2600 -400 Intake: IV 150 100 Sodium Chloride 0.9% 1, 150 100 000 ml @ 75 mls/hr IV . [id number] [facility] Rx#:[id number] Intake, IV Titration 23.982 Amount Dexmedetomidine/0.9% NaCl 23.982 (Pmx) 400 mcg In Empty Bag 1 bag @ 0.2 MCG/KG/HR 4.082 mls/hr IV .Q24H [facility] Rx#:[id number] Oral 400 2500 Output: Urine 3200 400 Other: Voiding Method Urinal Urinal - Exam GENERAL EXAM: Alert, cooperative 43-year-old male, on room air, comfortable in no apparent distress. HEAD: Normocephalic. EYES: Normal reaction of pupils, equal size. NOSE: Clear with pink turbinates. THROAT: No erythema or exudates. NECK: No masses, no JVD. CHEST: No chest wall deformity. LUNGS: Equal air entry with no crackles, wheeze, rhonchi or dullness. CVS: S1 and S2 normal with no audible murmur, regular rhythm. ABDOMEN: No hepatosplenomegaly, normal bowel sounds, no guarding or rigidity. SPINE: No scoliosis or deformity SKIN: No rashes CENTRAL NERVOUS SYSTEM: No focal deficits, tone is normal in all 4 extremities. EXTREMITIES: There is no peripheral edema. No clubbing, no cyanosis. Peripheral pulses are intact. - Labs CBC & Chem 7: 09/16/23 06:13 09/16/23 06:13 Labs: Abnormal Lab Results - Last 24 Hours (Table) 09/16/23 09/16/23 Range/Units 06:13 06:13 RBC 3.72 L (4.30-5.90) m/uL Hgb 12.8 L (13.0-17.5) gm/dL Hct 38.5 L (39.0-53.0) % MCV 103.5 H (80.0-100.0) fL Plt Count 93 L (150-450) k/uL Lymphocytes # (Manual) 0.98 L (1.0-4.8) k/uL Sodium 136 L (137-145) mmol/L BUN 8 L (9-20) mg/dL Magnesium 1.5 L (1.6-2.3) mg/dL Assessment and Plan Assessment: Acute alcohol withdrawal syndrome with delirium tremens History of alcohol abuse, transferred here from [facility] Transaminitis secondary to above Thrombocytopenia secondary to above History of hypertension History of pancreatitis Plan: The patient was seen and evaluated Labs and medications reviewed Stable and on room air Remains on the WA protocol Cleared for discharge from the pulmonary standpoint Plan is for home or return to [place] if possible I have personally seen and examined the patient, performed the documentation and the assessment and plan as written. Number of minutes spent on the visit: 10.
[2023-09-16] MEDS ORDERED: DOCUSATE 100 MG CAP PO PRN (14:16)
--- NOTE | 2023-09-16 14:25 | P.PN ---
Subjective Progress Note Date: 09/16/23 This is a 43-year-old male who presented to the emergency department from [place] with alcohol withdrawal with history of DTs in the past. Patient reports last drink was 1-1/2 days ago and had been maintained on oral Ativan although the withdrawal symptoms became too severe and brought to the hospital for further evaluation. Patient placed on CIWA protocol and also noted to have significant severe hypomagnesemia with a magnesium of 0.8. Patient was given protocol replacement and repeat labs are pending at this time. Patient being admitted to the ICU with impending withdrawals and Precedex drip is being ordered. Report Clerk following. Patient normally lives in the [facility] and has a primary care provider in that area and was here for rehab. CBC within normal limits, sodium 134, potassium 4.2, creatinine 0.75, random glucose 138, magnesium 0.8, total bili 1.4 with an AST of 132, urine drug screen was positive for benzos and alcohol serum level was less than 10. Patient started on CIWA protocol and again being brought to the ICU for Precedex drip as patient has been requiring large amounts of Ativan. Patient has a past medical history of hypertension, pancreatitis, ADD/ADHD with severe alcohol abuse. EKG revealed sinus tachycardia and chest x-ray showing no acute cardiopulmonary process 09/15/2023 Patient is seen and evaluated in follow-up continues to be in the ICU although as a downgrade once a bed on 3 S. becomes available. Patient is continued on CIWA protocol and is off Precedex and mentation is improved. Patient continues with significant withdrawals and most recent CIWA score was 5 maintained on IV Ativan and also has been started on Librium taper. Patient is afebrile denies chest pain or shortness of breath and is tolerating diet. Patient with si gnificant weakness recommend monitoring over the next few days on CIWA protocol for improvements in symptoms and withdrawals and hopeful for return to inpatient alcohol rehab by Monday at [place]. Patient would like to return to rehab to continue. 09/16/2023 Patient is evaluated in the medical floor he continues to require IV Ativan and continues with tremor at baseline. States he is having double vision and this has been ongoing since he went through withdrawals. he has not tolerated much diet. His platelet count has improved today up to 93. Magnesium 1.5. Review of Systems Constitutional: Denied any fatigue denied any fever. Cardio vascular: denied any chest pain, palpitations Gastrointestinal: denied any nausea, vomiting, diarrhea Pulmonary: Denied any shortness of breath cough Neurologic denied any new focal deficits All inpatient medications were reviewed and appropriate changes in these medications as dictated in the interval history and assessment and plan. PHYSICAL EXAMINATION: GENERAL: The patient is alert and oriented x3, not in any acute distress. Well developed, well nourished. HEENT: Pupils are round and equally reacting to light. EOMI. No scleral icterus. No conjunctival pallor. Normocephalic, atraumatic. No pharyngeal erythema. No thyromegaly. CARDIOVASCULAR: S1 and S2 present. No murmurs, rubs, or gallops. PULMONARY: Chest is clear to auscultation, no wheezing or crackles. ABDOMEN: Soft, nontender, nondistended, normoactive bowel sounds. No palpable organomegaly. MUSCULOSKELETAL: No joint swelling or deformity. EXTREMITIES: No cyanosis, clubbing, or pedal edema. NEUROLOGICAL: Gross neurological examination did not reveal any focal deficits. Continues with tremors and arms are extended SKIN: No rashes. Assessment: Acute alcohol withdrawal with acute delirium tremens history of continued alcohol abuse, was at [place] and sent here for withdrawals History of pancreatitis Hypertension history Severe hypomagnesemia, magnesium was 0.8 on admission secondary to alcohol use GI prophylaxis DVT prophylaxis Full code Plan: Patient has been transferred out of the intensive care unit and has been off the Precedex drip. He continues on Librium taper as well as IV Ativan CIWA protocol. Magnesium was replaced although remains low at 1.5 being replaced and will follow-up with repeat labs Discussed with case management/social work on discharge planning as patient will be returning to [place] for continued rehab The impression and plan of care has been dictated by Nany Sandoval Nurse Practitioner as directed. Dr. Rebekah MD I have performed a history and physical examination and medical decision making of this patient, discussed the same with the dictator, and agree with the dictators assessment and plan as written, documented as a scribe. Based on total visit time, I have performed more than 50% of this visit. Objective - Vital Signs Vital signs: Vital Signs Temp 97.5 F L 09/16/23 07:27 Pulse 93 09/16/23 07:27 Resp 20 09/16/23 07:27 BP 124/81 09/16/23 07:27 Pulse Ox 100 09/16/23 07:27 FiO2 Intake & Output 09/15/23 09/16/23 09/16/23 18:59 06:59 18:59 Intake Total 084.408 5788 Output Total 3200 400 Balance -2626.018 2600 -400 Intake: IV 150 100 Sodium Chloride 0.9% 1, 150 100 000 ml @ 75 mls/hr IV . [id number] [facility] Rx#:[id number] Intake, IV Titration 23.982 Amount Dexmedetomidine/0.9% NaCl 23.982 (Pmx) 400 mcg In Empty Bag 1 bag @ 0.2 MCG/KG/HR 4.082 mls/hr IV .Q24H [facility] Rx#:[id number] Oral 400 2500 Output: Urine 3200 400 Other: Voiding Method Urinal Urinal - Labs CBC & Chem 7: 09/16/23 06:13 09/16/23 06:13 Labs: Abnormal Lab Results - Last 24 Hours (Table) 09/16/23 09/16/23 Range/Units 06:13 06:13 RBC 3.72 L (4.30-5.90) m/uL Hgb 12.8 L (13.0-17.5) gm/dL Hct 38.5 L (39.0-53.0) % MCV 103.5 H (80.0-100.0) fL Plt Count 93 L (150-450) k/uL Lymphocytes # (Manual) 0.98 L (1.0-4.8) k/uL Sodium 136 L (137-145) mmol/L BUN 8 L (9-20) mg/dL Magnesium 1.5 L (1.6-2.3) mg/dL Assessment and Plan Time with Patient: Less than 30
[2023-09-16] MEDS: HEPARIN SODIUM,PORCINE 5,000 UNIT/ML 1 ML VIAL SQ SCH (22:15)
[2023-09-17] MEDS ORDERED: METOPROLOL TARTRATE 12.5 MG TAB PO SCH (09:45)
[2023-09-17] MEDS: MULTIVITAMINS, THERA 1 EACH TAB PO SCH (09:54)
[2023-09-17 10:02] LABS: BUN/Creat Ratio 8.38 Ratio (12.00-20.00); Blood Urea Nitrogen 6.7 mg/dL (9.0-27.0); Chloride 105 mmol/L (96-109); Glucose 98 mg/dL (70-110); Potassium 3.8 mmol/L (3.5-5.5); Sodium 142 mmol/L (135-145)
[2023-09-17 10:03] LABS: ALT 18 U/L (10-49); AST 42 U/L (14-35); Albumin 3.7 g/dL (3.8-4.9); Albumin/Globulin Ratio 1.54 Ratio (1.60-3.17); Alkaline Phosphatase 87 U/L (41-126); Calcium 9.4 mg/dL (8.7-10.3); Carbon Dioxide 25.6 mmol/L (21.6-31.8); Globulin 2.4 g/dL (1.6-3.3); Total Bilirubin 0.4 mg/dL (0.3-1.2); Total Protein 6.1 g/dL (6.2-8.2)
--- NOTE | 2023-09-17 13:54 | CT ---
EXAMINATION TYPE: CT brain wo con CT DLP: 1095.4 mGycm, Automated exposure control for dose reduction was used. DATE OF EXAM: 09/17/2023 1:46 PM COMPARISON: None. CLINICAL INDICATION:Male, 43 years old with history of Diplopia, double vision TECHNIQUE: Brain: Axial CT images of the brain were obtained with coronal and sagittal reformats created and rev iewed. Contrast used: None. Oral contrast used: None. FINDINGS: Brain: Extra-axial spaces: No abnormal extra-axial fluid collections. Ventricular system: Within normal limits Cerebral parenchyma: No acute intraparenchymal hemorrhage or mass effect. The baker-white junction is well differentiated. Cerebellum: Unremarkable. Mass effect: No evidence of midline shift. Intracranial vasculature: unremarkable Soft tissues: Normal. Calvarium/osseous structures: No depressed skull fracture. Paranasal sinuses and mastoid air cells: Mild scattered paranasal sinus disease. Visualized orbits: Orbital contents are intact. IMPRESSION: No acute intracranial process.
--- NOTE | 2023-09-17 14:24 | P.PN ---
Subjective Progress Note Date: 09/17/23 This is a 43-year-old male patient with a known history of hypertension and pancreatitis and alcohol dependence. He was at [facility] but developed delirium tremens and alcohol withdrawal syndrome and was brought here to the emergency room by EMS last evening. He is seen in [facility] in the emergency department. He is currently sedated. He has received 7 mg of Ativan thus far. 1 mg of Haldol. He had remained restless. The plan is to admit to the intensive care unit and utilize Precedex infusion. White count 3.3. Hemoglobin 13.3. MCV 102.5. Platelets 58,000. Sodium 134. Potassium 4.2. Bicarb 28. BUN 10. Creatinine 0.75. Glucose 138. AST 132. ALT 27. Urine drug screen positive for benzodiazepines. Serum alcohol level was less than 10. He is currently maintaining good O2 saturations in the 90s on room air. He is afebrile. Hemodynamically stable. Patient was reevaluated today on 09/15/2023, patient was transferred to the ICU yesterday, he is now off Precedex since 7 AM this morning, his alcohol withdrawal is easily handled with Ativan, following the CIWA protocol. Remains a bit shaky, but overall the patient is doing better. WBC count is 2.7 hemoglobin 12.9 basic metabolic profile is normal renal profile is normal. Patient is on room air, hemodynamically stable, not in any distress. Hence we will arrange for the patient to be transferred to the medical surgical floor today The patient is seen today September 16, 2023 in follow-up on the regular medical floor. He is currently sitting up in bed. Awake and alert in no acute dist ress. He is maintaining O2 saturations in the 90s on room air. He states he is feeling better just a little shaky. He remains on the CIWA protocol. White count 4.1. Hemoglobin 12.8. MCV 103.5. Platelets 93,000. Sodium 136. Potassium 3.7. Bicarb 24. BUN 8. Creatinine 0.69. Protonix for GI prophylaxis. The patient is seen today September 17, 2023 in follow-up on the regular medical floor. He is resting in bed. Awake and alert in no acute distress. Maintaining good O2 saturations in the 90s on room air. He is afebrile. Hemodynamically stable. No signs of acute alcohol withdrawal. Less shaky today compared to yesterday. He remains on the CIWA protocol. He was having issues with double vision. CT scan of the brain revealed no acute intracranial process. Sodium 142. Potassium 3.8. Bicarb 26. BUN 7. Creatinine 0.8. Glucose 98. Heparin for DVT prophylaxis. Objective - Vital Signs Vital signs: Vital Signs Temp 97.9 F 09/17/23 07:57 Pulse 92 09/17/23 07:57 Resp 20 09/17/23 07:57 BP 138/96 09/17/23 07:57 Pulse Ox 100 09/17/23 07:57 FiO2 Intake & Output 09/16/23 09/17/23 09/17/23 18:59 06:59 18:59 Output Total 400 Balance -400 Output: Urine 400 Other: Voiding Method Urinal # Voids 3 2 # Bowel Movements 1 - Exam GENERAL EXAM: Alert, 43-year-old male, resting in bed, on room air, comfortable in no apparent distress. HEAD: Normocephalic. EYES: Normal reaction of pupils, equal size. NOSE: Clear with pink turbinates. THROAT: No erythema or exudates. NECK: No masses, no JVD. CHEST: No chest wall deformity. LUNGS: Equal air entry with no crackles, wheeze, rhonchi or dullness. CVS: S1 and S2 normal with no audible murmur, regular rhythm. ABDOMEN: No hepatosplenomegaly, normal bowel sounds, no guarding or rigidity. SPINE: No scoliosis or deformity SKIN: No rashes CENTRAL NERVOUS SYSTEM: No focal deficits, tone is normal in all 4 extremities. EXTREMITIES: There is no peripheral edema. No clubbing, no cyanosis. Peripheral pulses are intact. - Labs CBC & Chem 7: 09/16/23 06:13 09/17/23 06:16 Labs: Abnormal Lab Results - Last 24 Hours (Table) 09/17/23 Range/Units 06:16 BUN 6.7 L (9.0-27.0) mg/dL BUN/Creatinine Ratio 8.38 L (12.00-20.00) Ratio AST 42 H (14-35) U/L Total Protein 6.1 L (6.2-8.2) g/dL Albumin 3.7 L (3.8-4.9) g/dL Albumin/Globulin Ratio 1.54 L (1.60-3.17) Ratio Assessment and Plan Assessment: Acute alcohol withdrawal syndrome with delirium tremens and double vision. CT scan of the brain revealed no acute intracranial process History of alcohol abuse, transferred here from [facility] Transaminitis secondary to above Thrombocytopenia secondary to above History of hypertension History of pancreatitis Plan: The patient was seen and evaluated CT scan of the brain, labs and medications reviewed Stable and on room air Remains on the [facility] protocol Neurology consulted regarding diplopia Plan is for home or return to [place] if possible I have personally seen and examined the patient, performed the documentation and the assessment and plan as written. Number of minutes spent on the visit: 10.
--- NOTE | 2023-09-17 16:22 | P.PN ---
Subjective Progress Note Date: 09/17/23 This is a 43-year-old male who presented to the emergency department from [place] with alcohol withdrawal with history of DTs in the past. Patient reports last drink was 1-1/2 days ago and had been maintained on oral Ativan although the withdrawal symptoms became too severe and brought to the hospital for further evaluation. Patient placed on CIWA protocol and also noted to have significant severe hypomagnesemia with a magnesium of 0.8. Patient was given protocol replacement and repeat labs are pending at this time. Patient being admitted to the ICU with impending withdrawals and Precedex drip is being ordered. [employer] following. Patient normally lives in the [facility] and has a primary care provider in that area and was here for rehab. CBC within normal limits, sodium 134, potassium 4.2, creatinine 0.75, random glucose 138, magnesium 0.8, total bili 1.4 with an AST of 132, urine drug screen was positive for benzos and alcohol serum level was less than 10. Patient started on CIWA protocol and again being brought to the ICU for Precedex drip as patient has been requiring large amounts of Ativan. Patient has a past medical history of hypertension, pancreatitis, ADD/ADHD with severe alcohol abuse. EKG revealed sinus tachycardia and chest x-ray showing no acute cardiopulmonary process 09/15/2023 Patient is seen and evaluated in follow-up continues to be in the ICU although as a downgrade once a bed on 3 S. becomes available. Patient is continued on CIWA protocol and is off Precedex and mentation is improved. Patient continues with significant withdrawals and most recent CIWA score was 5 maintained on IV Ativan and also has been started on Librium taper. Patient is afebrile denies chest pain or shortness of breath and is tolerating diet. Patient with si gnificant weakness recommend monitoring over the next few days on CIWA protocol for improvements in symptoms and withdrawals and hopeful for return to inpatient alcohol rehab by Monday at [place]. Patient would like to return to rehab to continue. 09/16/2023 Patient is evaluated in the medical floor he continues to require IV Ativan and continues with tremor at baseline. States he is having double vision and this has been ongoing since he went through withdrawals. he has not tolerated much diet. His platelet count has improved today up to 93. Magnesium 1.5. 09/17/2023 Patient is seen and evaluated toda resting in bed with his at the bedside. He continues to report diplopia mainly of the left eye. Patient does state that he is able to close his left eye and his symptoms resolved. After assessment he has not difficulty tracking with legging of the left eye. For this reason a brain CT was ordered with a neurology consultation. He continues to feel tremulous at baseline and is continue to receive doses of IV Ativan. Brain CT was negative for acute process. Review of Systems Constitutional: Denied any fatigue denied any fever. Cardio vascular: denied any chest pain, palpitations Gastrointestinal: denied any nausea, vomiting, diarrhea Pulmonary: Denied any shortness of breath cough Neurologic denied any new focal deficits All inpatient medications were reviewed and appropriate changes in these medications as dictated in the interval history and assessment and plan. PHYSICAL EXAMINATION: GENERAL: The patient is alert and oriented x3, not in any acute distress. Well developed, well nourished. HEENT: Pupils are round and equally reacting to light. EOMI. No scleral icterus. No conjunctival pallor. Normocephalic, atraumatic. No pharyngeal erythema. No thyromegaly. Reports diplopia of the left eye. CARDIOVASCULAR: S1 and S2 present. No murmurs, rubs, or gallops. PULMONARY: Chest is clear to auscultation, no wheezing or crackles. ABDOMEN: Soft, nontender, nondistended, normoactive bowel sounds. No palpable organomegaly. MUSCULOSKELETAL: No joint swelling or deformity. EXTREMITIES: No cyanosis, clubbing, or pedal edema. NEUROLOGICAL: Gross neurological examination did not reveal any focal deficits. Continues with tremors and arms are extended SKIN: No rashes. Assessment: Acute alcohol withdrawal with acute delirium tremens history of continued alcohol abuse, was at [place] and sent here for withdrawals diplopia brain CT showing no acute process and patient is pending neurology consultation History of pancreatitis Hypertension history Severe hypomagnesemia, magnesium was 0.8 on admission secondary to alcohol use magnesium is now normalized at 2.0. GI prophylaxis DVT prophylaxis Full code Plan: Patient has been transferred out of the intensive care unit and has been off the Precedex drip. He continues on Librium taper as well as IV Ativan CIWA protocol. Brain CT has been completed and not showing any acute changes neurology has been consulted for the diplopia. Discussed with case management/social work on discharge planning as patient will be returning to [place] for continued rehab The impression and plan of care has been dictated by Nany Sandoval, Nurse Practitioner as directed. Dr. Rebekah MD I have performed a history and physical examination and medical decision making of this patient, discussed the same with the dictator, and agree with the dictators assessment and plan as written, documented as a scribe. Based on total visit time, I have performed more than 50% of this visit. Objective - Vital Signs Vital signs: Vital Signs Temp 97.4 F L 09/17/23 12:41 Pulse 107 H 09/17/23 12:41 Resp 20 09/17/23 12:41 BP 127/90 09/17/23 12:41 Pulse Ox 98 09/17/23 12:41 FiO2 Intake & Output 09/16/23 09/17/23 09/17/23 18:59 06:59 18:59 Output Total 400 Balance -400 Output: Urine 400 Other: Voiding Method Urinal # Voids 3 2 # Bowel Movements 1 - Labs CBC & Chem 7: 09/16/23 06:13 09/17/23 06:16 Labs: Abnormal Lab Results - Last 24 Hours (Table) 09/17/23 Range/Units 06:16 BUN 6.7 L (9.0-27.0) mg/dL BUN/Creatinine Ratio 8.38 L (12.00-20.00) Ratio AST 42 H (14-35) U/L Total Protein 6.1 L (6.2-8.2) g/dL Albumin 3.7 L (3.8-4.9) g/dL Albumin/Globulin Ratio 1.54 L (1.60-3.17) Ratio Assessment and Plan Time with Patient: Less than 30
--- NOTE | 2023-09-18 15:48 | P.PN ---
Subjective Progress Note Date: 09/18/23 This is a 43-year-old male who presented to the emergency department from [place] with alcohol withdrawal with history of DTs in the past. Patient reports last drink was 1-1/2 days ago and had been maintained on oral Ativan although the withdrawal symptoms became too severe and brought to the hospital for further evaluation. Patient placed on CIWA protocol and also noted to have significant severe hypomagnesemia with a magnesium of 0.8. Patient was given protocol replacement and repeat labs are pending at this time. Patient being admitted to the ICU with impending withdrawals and Precedex drip is being ordered. Personal Chef following. Patient normally lives in the [facility] and has a primary care provider in that area and was here for rehab. CBC within normal limits, sodium 134, potassium 4.2, creatinine 0.75, random glucose 138, magnesium 0.8, total bili 1.4 with an AST of 132, urine drug screen was positive for benzos and alcohol serum level was less than 10. Patient started on CIWA protocol and again being brought to the ICU for Precedex drip as patient has been requiring large amounts of Ativan. Patient has a past medical history of hypertension, pancreatitis, ADD/ADHD with severe alcohol abuse. EKG revealed sinus tachycardia and chest x-ray showing no acute cardiopulmonary process 09/15/2023 Patient is seen and evaluated in follow-up continues to be in the ICU although as a downgrade once a bed on 3 S. becomes available. Patient is continued on CIWA protocol and is off Precedex and mentation is improved. Patient continues with significant withdrawals and most recent CIWA score was 5 maintained on IV Ativan and also has been started on Librium taper. Patient is afebrile denies chest pain or shortness of breath and is tolerating diet. Patient with significant weakness recommend monitoring over the next few days on CIWA protocol for improvements in symptoms and withdrawals and hopeful for return to inpatient alcohol rehab by Monday at [place]. Patient would like to return to rehab to continue. 09/16/2023 Patient is evaluated in the medical floor he continues to require IV Ativan and continues with tremor at baseline. States he is having double vision and this has been ongoing since he went through withdrawals. he has not tolerated much diet. His platelet count has improved today up to 93. Magnesium 1.5. 09/17/2023 Patient is seen and evaluated today resting in bed with his at the bedside. He continues to report diplopia mainly of the left eye. Patient does state that he is able to close his left eye and his symptoms resolved. After assessment he has not difficulty tracking with legging of the left eye. For thi s reason a brain CT was ordered with a neurology consultation. He continues to feel tremulous at baseline and is continue to receive doses of IV Ativan. Brain CT was negative for acute process. 09/18/2023 Patient is seen in follow-up today continues on CIWA protocol along with Librium taper and will continue. Patient continues to require IV Ativan although reports is slightly improved. Patient continues to report some visual disturbances with neurology following scheduled to undergo MRI of the brain today. Plan is to return to [place] once cleared by neurology. Patient is currently afebrile with no reported chest pain or shortness of breath. Review of Systems Constitutional: Denied any fatigue denied any fever. Cardio vascular: denied any chest pain, palpitations Gastrointestinal: denied any nausea, vomiting, diarrhea Pulmonary: Denied any shortness of breath cough Neurologic denied any new focal deficits All inpatient medications were reviewed and appropriate changes in these medications as dictated in the interval history and assessment and plan. PHYSICAL EXAMINATION: GENERAL: The patient is alert and oriented x3, not in any acute distress. Well developed, well nourished. HEENT: Pupils are round and equally reacting to light. EOMI. No scleral icterus. No conjunctival pallor. Normocephalic, atraumatic. No pharyngeal erythema. No thyromegaly. Reports diplopia of the left eye. CARDIOVASCULAR: S1 and S2 present. No murmurs, rubs, or gallops. PULMONARY: Chest is clear to auscultation, no wheezing or crackles. ABDOMEN: Soft, nontender, nondistended, normoactive bowel sounds. No palpable organomegaly. MUSCULOSKELETAL: No joint swelling or deformity. EXTREMITIES: No cyanosis, clubbing, or pedal edema. NEUROLOGICAL: Gross neurological examination did not reveal any focal deficits. Continues with tremors and arms are extended, minimally SKIN: No rashes. Assessment: Acute alcohol withdrawal with acute delirium tremens history of continued alcohol abuse, was at [place] and sent here for withdrawals diplopia brain CT showing no acute process and patient is pending MRI per neurology History of pancreatitis Hypertension history Severe hypomagnesemia, magnesium was 0.8 on admission secondary to alcohol use magnesium is now normalized at 2.0. GI prophylaxis DVT prophylaxis Full code Plan: Patient has been transferred out of the intensive care unit and has been off the Precedex drip. He continues on Librium taper as well as IV Ativan CIWA protocol. Requiring less Ativan Brain CT has been completed and not showing any acute changes neurology following for diplopia recommending MRI of the brain which is pending for today sometime Continue Librium taper Discussed with case management/social work on discharge planning as patient will be returning to [place] for continued rehab Possible discharge planning in the next 24 hours [place] The impression and plan of care has been dictated by Hope Rutherford, nurse practitioner as directed. Dr. Rebekah MD I have performed a history and examination and MDM of this patient, discussed the same with the dictator, and agree with the dictator's assessment and plan as written ,documented as a scribe. Based on total visit time, I have performed more than 50% of the visit. Any additional findings or plans will be noted. Objective - Vital Signs Vital signs: Vital Signs Temp 97.9 F 09/18/23 14:07 Pulse 99 09/18/23 14:07 Resp 18 09/18/23 14:07 BP 130/93 09/18/23 14:07 Pulse Ox 97 09/18/23 14:07 FiO2 Intake & Output 09/17/23 09/18/23 09/18/23 18:59 06:59 18:59 Intake Total 2500 Balance 2500 Intake: Oral 2500 Other: Voiding Method Urinal # Voids 3 2 2 # Bowel Movements 1 - Labs CBC & Chem 7: 09/16/23 06:13 09/17/23 06:16
--- NOTE | 2023-09-18 15:55 | P.CNNES ---
History of Present Illness Consult date: 09/18/23 Requesting physician: Vicki Welch Reason for Consult: Diplopia History of Present Illness: Patient is a 43-year-old right-handed male with history of chronic alcoholism, currently living in [facility], came to the hospital by ambulance on 09/13/2023 at 10:16 PM, for altered mental status, hallucinations. When EMS arrived, patient was ambulatory, unsteady on his feet. Patient was at [facility] for alcohol detox and treatment. Patient has not had a drink in 35 hours and was receiving Ativan protocol. Patient was having hallucinations tremors difficulty speaking and unsteady gait. This has been present for previous 24 hours and has not gotten better with the Ativan. Patient's vitals was blood pressure 134/83, heart rate 123, saturation 98% and GCS of 15. Patient's initial blood test shows WBCs 3.3, hemoglobin is normal with elevated MCV 102.5. Platelets are 58. Sodium 134 potassium normal renal functions are normal, hepatic panel with AST 132, ALT is normal 27. UA is negative, urine drug screen positive for benzodiazepine, blood alcohol level negative. Magnesium was 0.8. Patient's most recent CBC is normal with platelets 93. Electrolytes, renal functions are normal. AST is 42. EKG shows sinus tachycardia, chest x-ray is normal. CT head showed no acute intracranial process. Mild scattered paranasal sinus disease. On my review there is no [place] intracranial process, but there is some hypodensity in the pontine region bilaterally, uncertain if it is artifact. Neurology was consulted for double vision. Patient states that for last 1 jakub h, he has been sometimes noticing double vision, he would see 2 clocks on the wall. This has got worse in the last 1 week. Patient states that he see 2 images a lot of times. Some days he has double vision all day long and some days it comes and goes. Overall, majority of the time he does have double vision. Patient's has noticed that he does have some slurred speech sometimes in the last couple months. Sometimes she notices that his left eye is droopy, although he is not aware of it. Patient has history of hypertension but no diabetes. He does not take any medications on a regular basis. Patient has been drinking on and off for last 20 years. He was sober for 1 year, but in the last 9 months, he has resumed drinking alcohol, and drinks about 1/5 of vodka per day. Some days less some days more. Patient states that he has sniffed cocaine in the past and not done it for the last 128 days. He has never done any IV drug use. Never smoked tobacco, used to do marijuana in the past. Patient states that when he was younger, he had a lot of head injuries related to wrestling and football sports. Patient also complains of neuropathy in the legs which is worse in the feet and has some symptoms all the way to the knees. Also has some numbness of the tips of the fingers and he does not register the tabs on the tablet. The symptoms of neuropathy has been going on for last 2 months. Patient's medications include lorazepam, clonidine, thiamine, trazodone, ibuprofen, Zofran. Patient denies any family history of cerebral aneurysm. Review of Systems Constitutional: Reports chills (Sometimes), Reports fever (sometimes), Reports weight gain, Reports weight loss Eyes: bilateral bulging eye (Near vision only), bilateral diplopia, denies loss of vision, denies tunnel vision/blind spots Ears: deny: decreased hearing, ear discharge Ears, nose, mouth and throat: Reports headache, Reports vertigo, Denies sore throat Cardiovascular: Reports lightheadedness, Reports shortness of breath, Denies chest pain Respiratory: Reports cough with sputum, Denies wheezing Gastrointestinal: Reports abdominal pain, Reports diarrhea, Reports nausea, Reports vomiting Genitourinary: Reports incontinence (Lately in the last couple weeks), Reports urinary frequency, Denies urinary hesitancy Musculoskeletal: Reports neck pain, Denies low back pain Integumentary: Denies pruritus, Denies rash Neurological: Reports as per HPI Psychiatric: Reports anxiety, Denies depression Endocrine: Reports fatigue, Reports weight change Hematologic/Lymphatic: Reports easy bruising, Denies easy bleeding Past Medical History Past Medical History: Hypertension Additional Past Medical History / Comment(s): pancreatitis History of Any Multi-Drug Resistant Organisms: None Reported Past Surgical History: Orthopedic Surgery Smoking Status: Never smoker Medications and Allergies Home Medications Medication Instructions Recorded Confirmed Type Acetaminophen [Tylenol] 650 mg PO Q4H 09/14/23 09/14/23 History Calcium/Magnesium/Zinc/Bere D 1 tab PO TID PRN 09/14/23 09/14/23 History Chlorpheniramine Maleate 4 mg PO Q4H PRN 09/14/23 09/14/23 History [Chlor-Trimeton] Docusate [Colace] 100 mg PO BID PRN 09/14/23 09/14/23 History Hyoscyamine Sulfate [Levsin] 0.125 mg PO QID PRN 09/14/23 09/14/23 History Ibuprofen [Motrin Ib] 600 mg PO Q6H PRN 09/14/23 09/14/23 History LORazepam [Ativan] 1 - 2 mg PO Q4H 09/14/23 09/14/23 History Loperamide HCl [Imodium A-D] 4 mg PO BID PRN 09/14/23 09/14/23 History Mag Hydrox/Aluminum Hyd/Simeth 30 ml PO Q4H PRN 09/14/23 09/14/23 History [Mylanta Maximum Strength Liq] Multivitamins, Thera [Multivitamin 1 tab PO DAILY 09/14/23 09/14/23 History (formulary)] Thiamine [Vitamin B-1] 100 mg PO DAILY 09/14/23 09/14/23 History cloNIDine HCL [Catapres] 0.1 - 0.3 mg PO Q4H PRN 09/14/23 09/14/23 History ondansetron HCL [Zofran] 8 mg PO Q6H PRN 09/14/23 09/14/23 History traZODone HCL [Desyrel] 50 - 150 mg PO HS PRN 09/14/23 09/14/23 History Allergies Allergy/AdvReac Type Severity Reaction Status Date / Time No Known Allergies Allergy Verified 09/14/23 07:36 Physical Examination - Vital Signs Vital Signs: Vital Signs Temp Pulse Resp BP Pulse Ox 09/18/23 08:13 97.8 F 75 18 133/91 99 09/18/23 02:11 97.7 F 86 17 120/82 99 09/17/23 19:26 97.5 F L 92 20 138/99 100 09/17/23 12:41 97.4 F L 107 H 20 127/90 98 Intake and Output 09/17/23 09/18/23 09/18/23 22:59 06:59 14:59 Other: # Voids 3 2 Patient is a middle aged male, in no acute distress. Patient is showing signs of some alcohol withdrawal, shaky. Patient is alert awake oriented to time place and person. Patient knows it is August and the year is 2023 and that he is in [facility] imported on [place]. Speech and language functions are normal. Patient can name and repeat very well. No aphasia or dysarthria. Attention, concentration and fund of knowledge is adequate. His speech is slightly hoarse, slightly shaky. On cranial nerve examination, pupils are equal, round and reacting to light, vis ual stiles are full on confrontation, with no neglect on double simultaneous stimulation. Extraocular muscles are intact with no nystagmus. Patient was noticing diplopia looking to the right at times. Sometimes he has difficulty with saccadic and pursuit movements to the sides as compared to vertical gaze. His face is symmetric, tongue protrudes to the midline. Palatal elevation and sensation normal, hearing and shoulder shrug normal, facial sensation normal. On muscle strength testing, there is no pronator drift and the strength is normal in arms and legs distally and proximally. Deep tendon reflexes are symmetric biceps 1+, brachioradialis 1, knees 1+ ankles are trace and plantars are downgoing. Sensory to touch is equal with no neglect on double simultaneous stimulation. Cerebellar function showed no ataxia for ultvrv-lq-nlib testing. No dysdiadochokinesia. Patient has mild ataxia for rlvi-ji-wvlj testing on either side. Tone and bulk of muscles normal. Patient has tremors of outstretched hands. Gait deferred.. On general examination, there is no carotid bruit or murmur, S1-S2 audible. Chest is clear on consultation. Abdomen is soft nontender. No organomegaly, bowel sounds present. Peripheral pulses are present. No peripheral edema. Results - Laboratory Findings CBC and BMP: 09/16/23 06:13 09/17/23 06:16 Abnormal Lab Findings: Abnormal Labs 09/13/23 09/13/23 09/13/23 22:28 22:28 23:10 WBC 3.3 L RBC 3.87 L Hgb Hct MCV 102.5 H Plt Count 58 L Lymphocytes # 0.6 L Lymphocytes # (Manual) Sodium 134 L Potassium Chloride BUN Creatinine BUN/Creatinine Ratio Glucose 138 H POC Glucose (mg/dL) Magnesium 0.8 L* Total Bilirubin 1.4 H AST 132 H Total Protein Albumin Albumin/Globulin Ratio Urine Protein Trace H U Benzodiazepines Scrn Detected H 09/14/23 09/14/23 09/14/23 13:00 13:00 20:36 WBC 2.6 L RBC 3.78 L Hgb Hct MCV 105.4 H Plt Count 61 L Lymphocytes # 0.6 L Lymphocytes # (Manual) Sodium Potassium 3.3 L Chloride BUN 5 L Creatinine 0.60 L BUN/Creatinine Ratio Glucose 109 H POC Glucose (mg/dL) 169 H Magnesium 1.5 L Total Bilirubin AST Total Protein Albumin Albumin/Globulin Ratio Urine Protein U Benzodiazepines Scrn 09/15/23 09/15/23 09/15/23 03:55 03:55 03:55 WBC 2.7 L RBC 3.75 L Hgb 12.9 L Hct MCV 105.6 H Plt Count 65 L Lymphocytes # 0.8 L Lymphocytes # (Manual) Sodium 136 L Potassium Chloride 108 H BUN 6 L Creatinine 0.60 L BUN/Creatinine Ratio Glucose 105 H POC Glucose (mg/dL) Magnesium 1.4 L Total Bilirubin AST Total Protein Albumin Albumin/Globulin Ratio Urine Protein U Benzodiazepines Scrn 09/16/23 09/16/23 09/17/23 06:13 06:13 06:16 WBC RBC 3.72 L Hgb 12.8 L Hct 38.5 L MCV 103.5 H Plt Count 93 L Lymphocytes # Lymphocytes # (Manual) 0.98 L Sodium 136 L Potassium Chloride BUN 8 L 6.7 L Creatinine BUN/Creatinine Ratio 8.38 L Glucose POC Glucose (mg/dL) Magnesium 1.5 L Total Bilirubin AST 42 H Total Protein 6.1 L Albumin 3.7 L Albumin/Globulin Ratio 1.54 L Urine Protein U Benzodiazepines Scrn Assessment and Plan Assessment: * 43-year-old male with longstanding history of alcoholism, has developed about a month history of intermittent double vision, which seems to have got worse in the last 1 week. Examination does not reveal any obvious extraocular muscle weakness, although he is slight abnormal saccadic and pursuit movements with both eyes. Patient also has mild ataxia for iybh-ew-[id number] testing bilaterally. CT head revealed possible abnormal hypodensity in the pontine region. Rule out CPM. * Chronic alcoholism * History of polysubstance abuse as mentioned above * Macrocytic anemia, likely due to chronic alcoholism Plan: * MRI of the brain with and without contrast evaluate for CPM, rule out CVA or other structural abnormalities. * Blood test including B12, folate, MMA, B6, acetylcholine receptor antibodies and hemoglobin A1c. * PT OT * Continue thiamine, folate, multivitamins. * Neurology will follow. Thank you for the consult.
--- NOTE | 2023-09-19 14:18 | MR ---
EXAMINATION TYPE: MR brain wo/w con DATE OF EXAM: 09/19/2023 12:54 PM CLINICAL INDICATION:Male, 43 years old with history of Diplopia, ataxia, rule out CVA/CPM; PHH, Diplo tyrone, ataxia, evaluate for CVA/CPM. COMPARISON: 09/17/2023 TECHNIQUE: Multi planar, multi sequence imaging was performed through the brain including: T1, T2, In version recovery, susceptibility weighted imaging and gradient echo imaging and Diffusion weighted im aging. The patient was then given intravenous contrast and multi planar, T1 fat-saturation images wer e obtained. IV Contrast: 8 cc Gadavist FINDINGS: The baker-white junctions, ventricular system, basal cisterns appear unremarkable. Diffusion-weighted imaging shows no evidence of restricted diffusion to suggest acute/subacute infarct. Intracranial ar terial flow voids are maintained. Midline structures show no abnormality. Scattered foci of high T2 s ignal intensity are seen within the periventricular white matter. The susceptibility weighted images do not reveal any evidence for micro-hemorrhage. After administration of gadolinium, no abnormal enha ncement is seen. The bone marrow signal is within normal limits. Paranasal sinuses and mastoid air cells: Mild paranasal sinus mucosal thickening. Visualized orbits: Orbital contents are intact. IMPRESSION: 1. No evidence of intracranial mass, acute/subacute infarct, or abnormal enhancement. 2. Nonspecific white matter changes, likely related to small vessel ischemic disease.
[2023-09-19] MEDS: THIAMINE 500 MG in SODIUM CHLORIDE 0.9% 100 ML IVPB SCH (17:01)
[2023-09-19] MEDS: LORazepam 0.5 MG TAB PO PRN (17:02)
--- NOTE | 2023-09-20 02:29 | P.PN ---
Subjective Progress Note Date: 09/19/23 This is a 43-year-old male who presented to the emergency department from [facility] with alcohol withdrawal with history of DTs in the past. Patient reports last drink was 1-1/2 days ago and had been maintained on oral Ativan although the withdrawal symptoms became too severe and brought to the hospital for further evaluation. Patient placed on CIWA protocol and also noted to have significant severe hypomagnesemia with a magnesium of 0.8. Patient was given protocol replacement and repeat labs are pending at this time. Patient being admitted to the ICU with impending withdrawals and Precedex drip is being ordered. [employer] Permit Agent following. Patient normally lives in the [facility] and has a primary care provider in that area and was here for rehab. CBC within normal limits, sodium 134, potassium 4.2, creatinine 0.75, random glucose 138, magnesium 0.8, total bili 1.4 with an AST of 132, urine drug screen was positive for benzos and alcohol serum level was less than 10. Patient started on CIWA protocol and again being brought to the ICU for Precedex drip as patient has been requiring large amounts of Ativan. Patient has a past medical history of hypertension, pancreatitis, ADD/ADHD with severe alcohol abuse. EKG revealed sinus tachycardia and chest x-ray showing no acute cardiopulmonary process 09/15/2023 Patient is seen and evaluated in follow-up continues to be in the ICU although as a downgrade once a bed on 3 S. becomes available. Patient is continued on CIWA protocol and is off Precedex and mentation is improved. Patient continues with significant withdrawals and most recent CIWA score was 5 maintained on IV Ativan and also has been started on Librium taper. Patient is afebrile denies chest pain or shortness of breath and is tolerating diet. Patient with significant weakness recommend monitoring over the next few days on CIWA protocol for improvements in symptoms and withdrawals and hopeful for return to inpatient alcohol rehab by Monday at [facility]. Patient would like to return to rehab to continue. 09/16/2023 Patient is evaluated in the medical floor he continues to require IV Ativan and continues with tremor at baseline. States he is having double vision and this has been ongoing since he went through withdrawals. he has not tolerated much diet. His platelet count has improved today up to 93. Magnesium 1.5. 09/17/2023 Patient is seen and evaluated today resting in bed with his at the bedside. He continues to report diplopia mainly of the left eye. Patient does state that he is able to close his left eye and his symptoms resolved. After assessment he has not difficulty tracking with legging of the left eye. For thi s reason a brain CT was ordered with a neurology consultation. He continues to feel tremulous at baseline and is continue to receive doses of IV Ativan. Brain CT was negative for acute process. 09/18/2023 Patient is seen in follow-up today continues on CIWA protocol along with Librium taper and will continue. Patient continues to require IV Ativan although reports is slightly improved. Patient continues to report some visual disturbances with neurology following scheduled to undergo MRI of the brain today. Plan is to return to [facility] once cleared by neurology. Patient is currently afebrile with no reported chest pain or shortness of breath. 09/19/2023 Patient is seen in follow-up today with neurology following undergoing workup including MRI of the brain which is scheduled for today. Patient continues to report visual disturbances and also reporting shakiness and is maintained on CIWA protocol along with Librium. Will adjust and taper the Librium and discussed with nursing staff about using Ativan oral and recommend limiting IV Ativan use. Patient scheduled return to [facility] although unsure as case management reports he might of been medically discharged and awaiting to hear back from [facility]. Patient is afebrile with no reports of chest pain or shortness of breath. Patient is eating and drinking with no reported nausea or vomiting at this time. Review of Systems Constitutional: Denied any fatigue denied any fever. Cardio vascular: denied any chest pain, palpitations Gastrointestinal: denied any nausea, vomiting, diarrhea Pulmonary: Denied any shortness of breath cough Neurologic denied any new focal deficits All inpatient medications were reviewed and appropriate changes in these medications as dictated in the interval history and assessment and plan. PHYSICAL EXAMINATION: GENERAL: The patient is alert and oriented x3, not in any acute distress. Well developed, well nourished. HEENT: Pupils are round and equally reacting to light. EOMI. No scleral icterus. No conjunctival pallor. Normocephalic, atraumatic. No pharyngeal erythema. No thyromegaly. Reports diplopia of the left eye. CARDIOVASCULAR: S1 and S2 present. No murmurs, rubs, or gallops. PULMONARY: Chest is clear to auscultation, no wheezing or crackles. ABDOMEN: Soft, nontender, nondistended, normoactive bowel sounds. No palpable organomegaly. MUSCULOSKELETAL: No joint swelling or deformity. EXTREMITIES: No cyanosis, clubbing, or pedal edema. NEUROLOGICAL: Gross neurological examination did not reveal any focal deficits. Ataxia noted on exam SKIN: No rashes. Assessment: Acute alcohol withdrawal with acute delirium tremens history of continued alcohol abuse, was at [facility] and sent here for withdrawals diplopia brain CT showing no acute process and MRI is negative, concerns for possible Wernicke's encephalopathy History of pancreatitis Hypertension history Severe hypomagnesemia, magnesium was 0.8 on admission secondary to alcohol use magnesium is now normalized at 2.0. GI prophylaxis DVT prophylaxis Full code Plan: Patient being followed by neurology undergoing workup including MRI of the brain which was done today. MRI was negative for acute findings Patient continues to display some visual disturbances and ataxia with concerns of Warnicke's encephalopathy and will initiate high-dose IV thiamine and monitor closely Continue Librium taper and will decrease the dose Continue CIWA protocol although patient has been hospitalized for over a week now and concerns for withdrawal are low. Recommend limiting IV Ativan use and continuing with as needed Ativan and Librium Discussed with case management/social work on discharge planning as patient was planning on returning to [facility] for continued rehab. Case management to follow-up with [facility] as patient may have been medically discharged from there and will need to reinstate with them once discharged from the hospital The impression and plan of care has been dictated by Hope Rutherford, nurse practitioner as directed. Dr. Rebekah MD I have performed a history and examination and MDM of this patient, discussed the same with the dictator, and agree with the dictator's assessment and plan as written ,documented as a scribe. Based on total visit time, I have performed more than 50% of the visit. Any additional findings or plans will be noted. Objective - Vital Signs Vital signs: Vital Signs Temp 97.9 F 09/19/23 07:41 Pulse 91 09/19/23 08:00 Resp 17 09/19/23 08:00 BP 136/88 09/19/23 07:41 Pulse Ox 99 09/19/23 07:41 FiO2 Intake & Output 09/18/23 09/19/23 09/19/23 18:59 06:59 18:59 Intake Total 2500 Balance 2500 Intake: Oral 2500 Other: Voiding Method Urinal Toilet Toilet Urinal Urinal # Voids 3 1 # Bowel Movements 1 - Labs CBC & Chem 7: 09/16/23 06:13 09/17/23 06:16 Labs: Abnormal Lab Results - Last 24 Hours (Table) 09/18/23 Range/Units 11:42 Vitamin B12 1092.0 H (200.0-944.0) pg/mL
[2023-09-20 05:05] LABS: Methylmalonic Acid 0.12 umol/L (<0.40)
[2023-09-20] MEDS: chlordiazePOXIDE 25 MG CAP PO SCH (07:41)
[2023-09-20 08:43] LABS: HCT 38.4 % (39.6-50.0); HGB 12.3 g/dL (13.0-17.0); MCH 33.6 pg (27.0-32.0); MCV 104.9 FL (80.0-97.0); Mean Platelet Volume 10.3 FL (9.5-12.2); NRBC Per 100 WBC 0 X 10*3/uL (0.00-0.01); Platelet Count 223 X 10*3/uL (140-440); RBC 3.66 X 10*6/uL (4.40-5.60); RDW 13.2 % (11.5-14.5); WBC 3.29 X 10*3/uL (4.50-10.00)
[2023-09-20 08:54] LABS: Magnesium 1.8 mg/dL (1.5-2.4)
[2023-09-20 08:58] LABS: ALT 20 U/L (10-49); AST 29 U/L (14-35); Albumin 3.8 g/dL (3.8-4.9); Albumin/Globulin Ratio 1.73 Ratio (1.60-3.17); Alkaline Phosphatase 65 U/L (41-126); BUN/Creat Ratio 12.11 Ratio (12.00-20.00); Blood Urea Nitrogen 10.9 mg/dL (9.0-27.0); Calcium 9.9 mg/dL (8.7-10.3); Carbon Dioxide 26.3 mmol/L (21.6-31.8); Chloride 106 mmol/L (96-109); Globulin 2.2 g/dL (1.6-3.3); Glucose 121 mg/dL (70-110); Potassium 3.9 mmol/L (3.5-5.5); Sodium 142 mmol/L (135-145); Total Bilirubin 0.4 mg/dL (0.3-1.2)
[2023-09-20 09:19] LABS: Basophils # (A) 0.09 X 10*3/uL (0.00-0.10); Basophils % (A) 2.7 %; Eosinophils # (A) 0.14 X 10*3/uL (0.04-0.35); Eosinophils % (A) 4.3 %; Lymphocytes # (A) 1.49 X 10*3/uL (0.90-5.00); Lymphocytes % (A) 45.3 %; Macrocytosis (M) 2+; Monocytes # (A) 0.67 X 10*3/uL (0.20-1.00); Monocytes % (A) 20.4 %; Neutrophils # (A) 0.86 X 10*3/uL (1.80-7.70); Neutrophils % (A) 26.1 %
--- NOTE | 2023-09-20 10:48 | P.PN ---
Subjective Progress Note Date: 09/19/23 Patient was seen for a follow-up. Patient is sitting comfortably in bed. Patient states that his gait is getting better, but still has to use the walker. Patient states that his diplopia is getting better. Today at around noon he had diplopia for half an hour and then went away and has not happened since then. Patient states that he has history of PE and was on Eliquis for couple years after that. Objective - Vital Signs Vital signs: Vital Signs Temp 97.5 F L 09/19/23 14:32 Pulse 115 H 09/19/23 14:32 Resp 20 09/19/23 14:32 BP 125/91 09/19/23 14:32 Pulse Ox 99 09/19/23 14:32 FiO2 Intake & Output 09/18/23 09/19/23 09/19/23 18:59 06:59 18:59 Intake Total 2500 Balance 2500 Intake: Oral 2500 Other: Voiding Method Urinal Toilet Toilet Urinal Urinal # Voids 3 1 # Bowel Movements 1 - Exam Mental status, speech and language functions are normal. Extraocular muscles appears intact. Patient has slight hesitancy of horizontal end gaze. Muscle strength is normal. Face is symmetric. No ataxia for [id number]-[id number] although he is slightly ataxic in the lower limbs. - Labs CBC & Chem 7: 09/20/23 04:22 09/20/23 04:22 Assessment and Plan Assessment: * 43-year-old male with longstanding history of alcoholism, has developed about a month history of intermittent double vision, which seems to have got worse in the last 1 week. Examination does not reveal any obvious extraocular muscle weakness, although he is slight abnormal saccadic and pursuit movements with both eyes. Patient also has mild ataxia for wxfq-[id number] testing bila terally. MRI of the brain revealed no abnormal signal in the enrique or the corpus callosum or in the thalamus. Doubt Wernicke's syndrome because of normal brain MRI. * Chronic alcoholism * History of polysubstance abuse as mentioned above * Macrocytic anemia, likely due to chronic alcoholism Plan: * MRI of the brain with and without contrast revealed no evidence of intra cranial mass, acute/subacute infarct or abnormal enhancement. Nonspecific white matter changes, likely related to small vessel ischemic disease. I personally reviewed MRI and agree with the findings. No abnormal signal in the thalamus, brainstem or pineal glands. * B12 1092, folate 19.20, hemoglobin A1c 5.3. * Await B6, MMA and acetylcholine receptor antibodies. * PT OT * Continue thiamine, folate, multivitamins. * PT OT. * Discussed with primary physician.
[2023-09-20] MEDS: LORazepam 1 MG TAB PO PRN (16:40)
--- NOTE | 2023-09-20 19:48 | P.PN ---
Subjective Progress Note Date: 09/20/23 This is a 43-year-old male who presented to the emergency department from [place] with alcohol withdrawal with history of DTs in the past. Patient reports last drink was 1-1/2 days ago and had been maintained on oral Ativan although the withdrawal symptoms became too severe and brought to the hospital for further evaluation. Patient placed on CIWA protocol and also noted to have significant severe hypomagnesemia with a magnesium of 0.8. Patient was given protocol replacement and repeat labs are pending at this time. Patient being admitted to the ICU with impending withdrawals and Precedex drip is being ordered. Drywall Foreman following. Patient normally lives in the [facility] and has a primary care provider in that area and was here for rehab. CBC within normal limits, sodium 134, potassium 4.2, creatinine 0.75, random glucose 138, magnesium 0.8, total bili 1.4 with an AST of 132, urine drug screen was positive for benzos and alcohol serum level was less than 10. Patient started on CIWA protocol and again being brought to the ICU for Precedex drip as patient has been requiring large amounts of Ativan. Patient has a past medical history of hypertension, pancreatitis, ADD/ADHD with severe alcohol abuse. EKG revealed sinus tachycardia and chest x-ray showing no acute cardiopulmonary process 09/15/2023 Patient is seen and evaluated in follow-up continues to be in the ICU although as a downgrade once a bed on 3 S. becomes available. Patient is continued on CIWA protocol and is off Precedex and mentation is improved. Patient continues with significant withdrawals and most recent CIWA score was 5 maintained on IV Ativan and also has been started on Librium taper. Patient is afebrile denies chest pain or shortness of breath and is tolerating diet. Patient with significant weakness recommend monitoring over the next few days on CIWA protocol for improvements in symptoms and withdrawals and hopeful for return to inpatient alcohol rehab by Monday at [place]. Patient would like to return to rehab to continue. 09/16/2023 Patient is evaluated in the medical floor he continues to require IV Ativan and continues with tremor at baseline. States he is having double vision and this has been ongoing since he went through withdrawals. he has not tolerated much diet. His platelet count has improved today up to 93. Magnesium 1.5. 09/17/2023 Patient is seen and evaluated today resting in bed with his at the bedside. He continues to report diplopia mainly of the left eye. Patient does state that he is able to close his left eye and his symptoms resolved. After assessment he has not difficulty tracking with legging of the left eye. For thi s reason a brain CT was ordered with a neurology consultation. He continues to feel tremulous at baseline and is continue to receive doses of IV Ativan. Brain CT was negative for acute process. 09/18/2023 Patient is seen in follow-up today continues on CIWA protocol along with Librium taper and will continue. Patient continues to require IV Ativan although reports is slightly improved. Patient continues to report some visual disturbances with neurology following scheduled to undergo MRI of the brain today. Plan is to return to [place] once cleared by neurology. Patient is currently afebrile with no reported chest pain or shortness of breath. 09/19/2023 Patient is seen in follow-up today with neurology following undergoing workup including MRI of the brain which is scheduled for today. Patient continues to report visual disturbances and also reporting shakiness and is maintained on CIWA protocol along with Librium. Will adjust and taper the Librium and discussed with nursing staff about using Ativan oral and recommend limiting IV Ativan use. Patient scheduled return to [place] although unsure as case management reports he might of been medically discharged and awaiting to hear back from [place]. Patient is afebrile with no reports of chest pain or shortness of breath. Patient is eating and drinking with no reported nausea or vomiting at this time. 09/20/2023 Patient seen and evaluated in follow-up today currently sitting up in the chair reports to feeling somewhat improved and is maintained on thiamine high-dose IV infusion 500 mg 3 times daily and will continue for 3 days. Patient reports symptoms improving in his vision as well. Patient is afebrile with no reports of chest pain or shortness of breath. Will titrate Librium taper and have d iscontinued IV Ativan. P.o. Ativan as needed. Encouraged to increase activity as tolerated. Patient will be going home on discharge. Review of Systems Constitutional: Denied any fatigue denied any fever. Cardio vascular: denied any chest pain, palpitations Gastrointestinal: denied any nausea, vomiting, diarrhea Pulmonary: Denied any shortness of breath cough Neurologic denied any new focal deficits All inpatient medications were reviewed and appropriate changes in these medications as dictated in the interval history and assessment and plan. PHYSICAL EXAMINATION: GENERAL: The patient is alert and oriented x3, not in any acute distress. Well developed, well nourished. HEENT: Pupils are round and equally reacting to light. EOMI. No scleral icterus. No conjunctival pallor. Normocephalic, atraumatic. No pharyngeal erythema. No thyromegaly. Reports diplopia of the left eye. CARDIOVASCULAR: S1 and S2 present. No murmurs, rubs, or gallops. PULMONARY: Chest is clear to auscultation, no wheezing or crackles. ABDOMEN: Soft, nontender, nondistended, normoactive bowel sounds. No palpable organomegaly. MUSCULOSKELETAL: No joint swelling or deformity. EXTREMITIES: No cyanosis, clubbing, or pedal edema. NEUROLOGICAL: Gross neurological examination did not reveal any focal deficits. No shakes noted and less jittery on exam SKIN: No rashes. Assessment: Acute alcohol withdrawal with acute delirium tremens history of continued alcohol abuse, was at [place] and sent here for withdrawals diplopia brain CT showing no acute process and MRI is negative, concerns for possible Wernicke's encephalopathy, likely as symptoms are improving History of pancreatitis Hypertension history Severe hypomagnesemia, magnesium was 0.8 on admission secondary to alcohol use magnesium is now normalized at 2.0. GI prophylaxis DVT prophylaxis Full code Plan: Patient being followed by neurology undergoing workup including MRI of the brain which was negative for acute findings. Significant atrophy noted on MRI Patient reports to some improvements in visual disturbances and less ataxic. There is concerns with concerns of Warnicke's encephalopathy and will continue high-dose IV thiamine and monitor closely Continue Librium taper and will decrease the dose Patient will have p.o. Ativan as needed and patient is out of the window of withdrawals. Discontinue IV Ativan Discussed with case management/social work on discharge planning as patients original plan was to return to [place] for continued rehab. Patient has been medically discharged from [place] and would need to initiate again in the outpatient setting in 30 days. Patient will be going home on discharge. Patient is concerned of getting a ride back to [place] and will discuss further with case management Possible discharge in 24 hours The impression and plan of care has been dictated by Hope Rutherford, nurse practitioner as directed. Dr. Rebekah MD I have performed a history and examination and MDM of this patient, discussed the same with the dictator, and agree with the dictator's assessment and plan as written ,documented as a scribe. Based on total visit time, I have performed more than 50% of the visit. Any additional findings or plans will be noted. Objective - Vital Signs Vital signs: Vital Signs Temp 98.3 F 09/20/23 13:56 Pulse 111 H 09/20/23 13:56 Resp 20 09/20/23 13:56 BP 121/78 09/20/23 13:56 Pulse Ox 97 09/20/23 13:56 FiO2 Intake & Output 09/20/23 09/20/23 09/21/23 06:59 18:59 06:59 Intake Total 800 Balance 800 Intake: IV 700 Sodium Chloride 0.9% 1, 700 000 ml @ 75 mls/hr IV . [id number] [facility] Rx#:[id number] Intake, IV Titration 100 Amount Thiamine 500 mg In Sodium 100 Chloride 0.9% 100 ml @ 210 mls/hr IVPB Q8HR [facility] Rx#:[id number] Other: Voiding Method Toilet Toilet # Voids 1 3 - Labs CBC & Chem 7: 09/20/23 04:22 09/20/23 04:22 Labs: Abnormal Lab Results - Last 24 Hours (Table) 09/20/23 09/20/23 Range/Units 04:22 04:22 WBC 3.29 L (4.50-10.00) X 10*3/uL RBC 3.66 L (4.40-5.60) X 10*6/uL Hgb 12.3 L (13.0-17.0) g/dL Hct 38.4 L (39.6-50.0) % MCV 104.9 H (80.0-97.0) FL MCH 33.6 H (27.0-32.0) pg Neutrophils # 0.86 L (1.80-7.70) X 10*3/uL Macrocytosis (manual) 2+ A Glucose 121 H (70-110) mg/dL Total Protein 6.0 L (6.2-8.2) g/dL
[2023-09-21 07:53] VITALS: BMI 26.8
--- NOTE | 2023-09-21 09:17 | P.PN ---
Subjective Progress Note Date: 09/20/23 Patient was seen for a follow-up. Patient is sitting comfortably in the recliner. Patient states that he has not had any more diplopia in the last 24 hours. He is walking slightly better although walking with a wide-based. He is able to walk without walker as well. Patient states that he has history of PE and was on Eliquis for couple years after that. Objective - Vital Signs Vital signs: Vital Signs Temp 98.3 F 09/20/23 13:56 Pulse 111 H 09/20/23 13:56 Resp 20 09/20/23 13:56 BP 121/78 09/20/23 13:56 Pulse Ox 97 09/20/23 13:56 FiO2 Intake & Output 09/19/23 09/20/23 09/20/23 18:59 06:59 18:59 Intake Total 800 Balance 800 Intake: IV 700 Sodium Chloride 0.9% 1, 700 000 ml @ 75 mls/hr IV . [id number] [facility] Rx#:[id number] Intake, IV Titration 100 Amount Thiamine 500 mg In Sodium 100 Chloride 0.9% 100 ml @ 210 mls/hr IVPB Q8HR [facility] Rx#:[id number] Other: Voiding Method Toilet Toilet Toilet Urinal # Voids 3 1 # Bowel Movements 1 - Exam Mental status, speech and language functions are normal. Extraocular muscles appears intact. Patient has slight hesitancy of horizontal end gaze, although better. Muscle strength is normal. Face is symmetric. No ataxia for [id number] although he is slightly ataxic in the lower limbs. Patient walks with wide base. He was walking without the walker although slow. - Labs CBC & Chem 7: 09/20/23 04:22 09/20/23 04:22 Labs: Abnormal Lab Results - Last 24 Hours (Table) 09/20/23 09/20/23 Range/Units 04:22 04:22 WBC 3.29 L (4.50-10.00) X 10*3/uL RBC 3.66 L (4.40-5.60) X 10*6/uL Hgb 12.3 L (13.0-17.0) g/dL Hct 38.4 L (39.6-50.0) % MCV 104.9 H (80.0-97.0) FL MCH 33.6 H (27.0-32.0) pg Neutrophils # 0.86 L (1.80-7.70) X 10*3/uL Macrocytosis (manual) 2+ A Glucose 121 H (70-110) mg/dL Total Protein 6.0 L (6.2-8.2) g/dL Assessment and Plan Assessment: * 43-year-old male with longstanding history of alcoholism, has developed about a month history of intermittent double vision, which seems to have got worse in the last 1 week. Examination does not reveal any obvious extraocular muscle weakness, although he is slight abnormal saccadic and pursuit movements with both eyes. Patient also has mild ataxia for [id number] testing bilaterally. MRI of the brain revealed no abnormal signal in the enrique or the corpus callosum or in the thalamus. Doubt Wernicke's encephalopathy because of normal brain MRI. * Chronic alcoholism * History of polysubstance abuse as mentioned above * Macrocytic anemia, likely due to chronic alcoholism Plan: * MRI of the brain with and without contrast revealed no evidence of intracranial mass, acute/subacute infarct or abnormal enhancement. Nonspecific white matter changes, likely related to small vessel ischemic disease. I personally reviewed MRI and agree with the findings. No abnormal signal in the thalamus, brainstem or pineal glands. * B12 1092, folate 19.20, hemoglobin A1c 5.3, MMA 0.12, B6 16 normal. * Await acetylcholine receptor antibodies. * PT OT * Continue thiamine, folate, multivitamins. Patient receiving high-dose th iamine empirically for possible Wernicke's encephalopathy. * PT OT. * Discussed with primary physician.
--- NOTE | 2023-09-21 22:22 | P.PN ---
Subjective Progress Note Date: 09/21/23 This is a 43-year-old male who presented to the emergency department from [place] with alcohol withdrawal with history of DTs in the past. Patient reports last drink was 1-1/2 days ago and had been maintained on oral Ativan although the withdrawal symptoms became too severe and brought to the hospital for further evaluation. Patient placed on CIWA protocol and also noted to have significant severe hypomagnesemia with a magnesium of 0.8. Patient was given protocol replacement and repeat labs are pending at this time. Patient being admitted to the ICU with impending withdrawals and Precedex drip is being ordered. Fig Caprifier following. Patient normally lives in the [facility] and has a primary care provider in that area and was here for rehab. CBC within normal limits, sodium 134, potassium 4.2, creatinine 0.75, random glucose 138, magnesium 0.8, total bili 1.4 with an AST of 132, urine drug screen was positive for benzos and alcohol serum level was less than 10. Patient started on CIWA protocol and again being brought to the ICU for Precedex drip as patient has been requiring large amounts of Ativan. Patient has a past medical history of hypertension, pancreatitis, ADD/ADHD with severe alcohol abuse. EKG revealed sinus tachycardia and chest x-ray showing no acute cardiopulmonary process 09/15/2023 Patient is seen and evaluated in follow-up continues to be in the ICU although as a downgrade once a bed on 3 S. becomes available. Patient is continued on CIWA protocol and is off Precedex and mentation is improved. Patient continues with significant withdrawals and most recent CIWA score was 5 maintained on IV Ativan and also has been started on Librium taper. Patient is afebrile denies chest pain or shortness of breath and is tolerating diet. Patient with significant weakness recommend monitoring over the next few days on CIWA protocol for improvements in symptoms and withdrawals and hopeful for return to inpatient alcohol rehab by Monday at [place]. Patient would like to return to rehab to continue. 09/16/2023 Patient is evaluated in the medical floor he continues to require IV Ativan and continues with tremor at baseline. States he is having double vision and this has been ongoing since he went through withdrawals. he has not tolerated much diet. His platelet count has improved today up to 93. Magnesium 1.5. 09/17/2023 Patient is seen and evaluated today resting in bed with his at the bedside. He continues to report diplopia mainly of the left eye. Patient does state that he is able to close his left eye and his symptoms resolved. After assessment he has not difficulty tracking with legging of the left eye. For thi s reason a brain CT was ordered with a neurology consultation. He continues to feel tremulous at baseline and is continue to receive doses of IV Ativan. Brain CT was negative for acute process. 09/18/2023 Patient is seen in follow-up today continues on CIWA protocol along with Librium taper and will continue. Patient continues to require IV Ativan although reports is slightly improved. Patient continues to report some visual disturbances with neurology following scheduled to undergo MRI of the brain today. Plan is to return to [place] once cleared by neurology. Patient is currently afebrile with no reported chest pain or shortness of breath. 09/19/2023 Patient is seen in follow-up today with neurology following undergoing workup including MRI of the brain which is scheduled for today. Patient continues to report visual disturbances and also reporting shakiness and is maintained on CIWA protocol along with Librium. Will adjust and taper the Librium and discussed with nursing staff about using Ativan oral and recommend limiting IV Ativan use. Patient scheduled return to [place] although unsure as case management reports he might of been medically discharged and awaiting to hear back from [place]. Patient is afebrile with no reports of chest pain or shortness of breath. Patient is eating and drinking with no reported nausea or vomiting at this time. 09/20/2023 Patient seen and evaluated in follow-up today currently sitting up in the chair reports to feeling somewhat improved and is maintained on thiamine high-dose IV infusion 500 mg 3 times daily and will continue for 3 days. Patient reports symptoms improving in his vision as well. Patient is afebrile with no reports of chest pain or shortness of breath. Will titrate Librium taper and have d iscontinued IV Ativan. P.o. Ativan as needed. Encouraged to increase activity as tolerated. Patient will be going home on discharge. 09/21/2023 Patient is seen this morning currently up and walking with a much improved gait. Patient less ataxic and reports his double vision has improved over the last 2 days. Patient is maintained on high-dose thiamine with neurology following and patient was continued on CIWA protocol. Patient making outpatient plans for inpatient rehab near his home and reports has an appointment this week. Patient is afebrile with no reported chest pain or shortness of breath. Patient reports tolerating diet and anxious to go home. Patient continued on high-dose thiamine for today and will continue a taper on discharge with discharge planning in 24 hours. Review of Systems Constitutional: Denied any fatigue denied any fever. Cardio vascular: denied any chest pain, palpitations Gastrointestinal: denied any nausea, vomiting, diarrhea Pulmonary: Denied any shortness of breath cough Neurologic denied any new focal deficits All inpatient medications were reviewed and appropriate changes in these medications as dictated in the interval history and assessment and plan. PHYSICAL EXAMINATION: GENERAL: The patient is alert and oriented x3, not in any acute distress. Well developed, well nourished. HEENT: Pupils are round and equally reacting to light. EOMI. No scleral icterus. No conjunctival pallor. Normocephalic, atraumatic. No pharyngeal erythema. No thyromegaly. Reports diplopia of the left eye. CARDIOVASCULAR: S1 and S2 present. No murmurs, rubs, or gallops. PULMONARY: Chest is clear to auscultation, no wheezing or crackles. ABDOMEN: Soft, nontender, nondistended, normoactive bowel sounds. No palpable organomegaly. MUSCULOSKELETAL: No joint swelling or deformity. EXTREMITIES: No cyanosis, clubbing, or pedal edema. NEUROLOGICAL: Gross neurological examination did not reveal any focal deficits. No shakes noted and less jittery on exam SKIN: No rashes. Assessment: Acute alcohol withdrawal with acute delirium tremens history of continued alcohol abuse, was at [place] and sent here for withdrawals diplopia, brain CT showing no acute process and MRI is negative, concerns for possible Wernicke's encephalopathy, likely as symptoms are improving History of pancreatitis Hypertension history Severe hypomagnesemia, magnesium was 0.8 on admission secondary to alcohol use magnesium is now normalized at 2.0. GI prophylaxis DVT prophylaxis Full code Plan: Patient being followed by neurology underwent workup including MRI of the brain which was negative for acute findings. Significant atrophy noted on MRI Patient reports to some improvements in visual disturbances and also reports he has not had double vision in 2 days. Patient less ataxic. There is concerns with concerns of Warnicke's encephalopathy and will continue high-dose IV thiamine and monitor closely Continue Librium taper and will decrease the dose Patient will have p.o. Ativan as needed and patient is out of the window of withdrawals. Discontinue IV Ativan Discussed with case management/social work on discharge planning as patients original plan was to return to [place] for continued rehab. Patient has been medically discharged from [place] and would need to initiate again in the outpatient setting in 30 days. Patient will be going home on discharge. Patient arranging for rehab near his home and has an appointment this week he reports. Patient will continue with high-dose IV thiamine and discharged on a taper Again, complete alcohol cessation has been discussed. Patient will be discharged in 24 hours The impression and plan of care has been dictated by Hope Rutherford, nurse practitioner as directed. Dr. Rebekah MD I have performed a history and examination and MDM of this patient, discussed the same with the dictator, and agree with the dictator's assessment and plan as written ,documented as a scribe. Based on total visit time, I have performed more than 50% of the visit. Any additional findings or plans will be noted. Objective - Vital Signs Vital signs: Vital Signs Temp 97.5 F L 09/21/23 07:05 Pulse 85 09/21/23 07:05 Resp 17 09/21/23 07:05 BP 115/78 09/21/23 07:05 Pulse Ox 96 09/21/23 07:05 FiO2 Intake & Output 09/20/23 09/21/23 09/21/23 18:59 06:59 18:59 Intake Total 960 Balance 960 Weight 77.6 kg Intake: Oral 960 Other: Voiding Method Toilet Toilet # Voids 3 3 - Labs CBC & Chem 7: 09/20/23 04:22 09/20/23 04:22
[2023-09-22] MEDS: THIAMINE 250 MG in SODIUM CHLORIDE 0.9% 100 ML IVPB SCH (08:41)
[2023-09-22 08:50] VITALS: BP 126/89; PULSE 77; RESP 17; TEMP 98.1
--- NOTE | 2023-09-22 08:57 | P.PN ---
Subjective Progress Note Date: 09/21/23 Patient was seen for a follow-up. Patient is sitting comfortably in the recliner. Patient states that he has not had any more diplopia in the last 48 hours. Patient states that his neuropathy in the feet and legs have almost resolved. He feels he is 95% improved. He still has slight shakes, feels gait needs to improve. Patient said that he suffered from flu about 1-1/2 months ago and after that he developed neuropathy in his legs, which was very severe, like "prawns biting on his feet and legs". Patient tells me that he suffered from mono from November through February 2023 for "100 days". He had mild neuropathy after the mono, but got much worse after he suffered from flu about 1-1/2 months ago. Patient states that he has history of PE and was on Eliquis for couple years after that. Objective - Vital Signs Vital signs: Vital Signs Temp 98.1 F 09/21/23 14:00 Pulse 112 H 09/21/23 14:00 Resp 17 09/21/23 14:00 BP 118/80 09/21/23 14:00 Pulse Ox 98 09/21/23 14:00 FiO2 Intake & Output 09/20/23 09/21/23 09/21/23 18:59 06:59 18:59 Intake Total 960 Balance 960 Weight 77.6 kg Intake: Oral 960 Other: Voiding Method Toilet Toilet Toilet # Voids 3 3 - Exam Mental status, speech and language functions are normal. Patient appears to have some further restriction of extraocular muscles towards the left although better see towards the right side. He has no double vision. Muscle strength is normal in the arms and legs distally and proximally. Face is symmetric. No ataxia for rmtejz-[id number]-limy testing. No significant ataxia for [id number] testing either. Deep tendon reflexes are (right/left) biceps trace/1, brachioradialis 0/0, knees 1+2/trace-1, ankles trace/0. Plantars are downgoing. Patient walking slightly better, with less wide base. - Labs CBC & Chem 7: 09/20/23 04:22 09/20/23 04:22 Assessment and Plan Assessment: * 43-year-old male with longstanding history of alcoholism, has developed about a month history of intermittent double vision, which seems to have got worse in the last 1 week (TUBING OILER). Patient has developed some worsening of gaze restriction towards the left although not complaining of double vision a nymore. Patient suffered from flu about 1-1/2 to 2 months ago, after which he developed significant neuropathy in his legs with pins and needle sensation. Subsequently he developed extraocular muscle weakness with double vision, and ataxia in the lower limbs. No obvious vitamin deficiency has been identified with blood testing. Symptoms are highly concerning for Guillain-Pollard syndrome. MRI of the brain revealed no abnormal signal in the enrique or the corpus callosum or in the thalamus. Doubt Wernicke's encephalopathy because of normal brain MRI. * Chronic alcoholism * History of polysubstance * Macrocytic anemia, likely due to chronic alcoholism Plan: * Patient states that he is improving significantly. He feels he is 95% improved. However on examination patient has developed gaze restriction towards the left which appears slightly worse than before. He states his neuropathy in the legs have remarkably improved. His gait is still slightly ataxic with wide base. Overall symptoms are concerning for Guillain-Pollard syndrome. I recommended lumbar puncture, but he declined. He wants to go home tomorrow as he has to have his get into rehabilitation, as she is also alcoholic. He has some other errands to do therefore has to go home tomorrow. He wants to follow-up with neurologist for further management. * I would recommend patient undergo EMG and nerve conduction of upper and lower extremities, and perhaps lumbar puncture to evaluate for possible Guillain- Pollard syndrome. If symptoms progresses, then definitely consider IVIG or plasma exchange. * MRI of the brain with and without contrast revealed no evidence of intracranial mass, acute/subacute infarct or abnormal enhancement. Nonspecific white matter changes, likely related to small vessel ischemic disease. I personally reviewed MRI and agree with the findings. No abnormal signal in the thalamus, brainstem or pineal glands. * B12 1092, folate 19.20, hemoglobin A1c 5.3, MMA 0.12, B6 16 normal. * Await acetylcholine receptor antibodies. * PT OT * Continue thiamine, folate, multivitamins. Patient receiving high-dose thiamine empirically for possible Wernicke's encephalopathy. * PT OT.
--- NOTE | 2023-09-24 13:13 | P.DS ---
Providers Date of admission: 09/14/23 00:18 Expected date of discharge: 09/21/23 Attending physician: Ted Rodrigez Consults: 09/14/23 06:00 Consult Physician Stat Consulting Provider: Gigi Matt Consult Reason/Comments: ICU management Do you want consulting provider notified?: Yes 09/17/23 12:17 Consult Physician Routine Consulting Provider: Amrik Barr Consult Reason/Comments: Diplopia Do you want consulting provider notified?: Yes Primary care physician: Physician Nonstaff Hospital Course: Final diagnosis Acute alcohol withdrawal with acute delirium tremens history of continued alcohol abuse, was at [facility] and sent here for withdrawals diplopia, brain CT showing no acute process and MRI is negative, concerns for possible Wernicke's encephalopathy, likely as symptoms are improving, neurology questioning possible Pipo Pollard syndrome and recommending lumbar puncture and patient refusing at this time and would like to follow-up outpatient History of pancreatitis Hypertension history Severe hypomagnesemia, magnesium was 0.8 on admission secondary to alcohol use magnesium is now normalized at 2.0. GI prophylaxis DVT prophylaxis Full code Discharge disposition Patient is being discharged in a stable condition with guarded prognosis to home. Patient will follow-up with his primary care provider where he resides in the outpatient setting upon discharge. Patient is to continue with thiamine high-dose as prescribed and close outpatient follow-up with neurology for possible EMG and possible LP as discussed. Patient has intake visit this week for inpatient alcohol rehab out of [facility]. Total time taken is greater than 35 minutes. Hospital course This is a 43-year-old male who was recently admitted with alcohol withdrawal with acute alcohol delirium from [facility] being closely monitored. Patient was briefly in the ICU on Precedex and continued CIWA protocol. Patient also experiencing some diplopia and visual disturbances underwent thorough neurological investigation including MRI of the brain which was negative. There was concerns of Warnicke's encephalopathy as patient has significant ataxia with visual disturbances including diplopia and was started on high-dose thiamine IV 3 times daily and titrated down to a oral taper showing significant improvement and reporting no further visual disturbances. Patient to continue to have some left-sided gaze disturbances and later reported to neurology of being ill with flu and/or cold 1-1/2 months ago and started noticing the symptoms after. Neurology recommending LP to rule out Pipo Pollard. Patient did not want to stay for the LP and requested information for outpatient follow-up to follow with a neurologist for possible further studies including LP and EMG studies. Patient was given a Librium taper on discharge and reports has a follow-up appointment this week for an intake at alcohol rehab. Patient had been medically discharged from [facility]. Patient to follow-up with neurology on discharge. Discussed complete alcohol cessation with the patient. Patient had been cleared by consultations. Please refer to consultation notes for further HPI. Currently no reports of chest pain, shortness of breath, or palpitations. Patient is afebrile. No reports of nausea or vomiting and patient is tolerating diet. Patient will be discharged home today. Guarded prognosis and high risk for readmissions given patient's significant alcohol abuse Physical exam: Gen: This is a 43-year-old male who is awake, alert and oriented x 2-3, well- developed, well-nourished HEENT: Head is atraumatic, normocephalic. Pupils equal, round. Sclerae is anicteric. NECK: Supple. No JVD. No lymphadenopathy. No thyromegaly. LUNGS: Clear to auscultation. No wheezes or rhonchi. No intercostal retractions. HEART: Regular rate and rhythm. No murmur. ABDOMEN: Soft. Bowel sounds are present. No masses. No tenderness. EXTREMITIES: No pedal edema. No calf tenderness. NEUROLOGICAL: Patient is awake, alert and oriented x3. Cranial nerves 2 through 12 are grossly intact. Please refer to medication reconciliation sheet for a list of medications. The impression and plan of care has been dictated by Hope Rutherford, Nurse Practitioner as directed. Dr. Rebekah MD I have performed a history and examination and MDM of this patient, discussed the same with the dictator, and agree with the dictator's assessment and plan as written ,documented as a scribe. Based on total visit time, I have performed more than 50% of the visit. Patient Condition at Discharge: Fair Plan - Discharge Summary Discharge Rx Participant: No New Discharge Prescriptions: New LORazepam [Ativan] 1 mg PO Q8HR PRN #6 tab PRN Reason: Anxiety chlordiazePOXIDE HCl [Librium] 25 mg PO BID #6 cap Continue ondansetron HCL [Zofran] 8 mg PO Q6H PRN PRN Reason: Nausea And Vomiting Acetaminophen [Tylenol] 650 mg PO Q4H Mag Hydrox/Aluminum Hyd/Simeth [Mylanta Maximum Strength Liq] 30 ml PO Q4H PRN PRN Reason: Gi Upset Ibuprofen [Motrin Ib] 600 mg PO Q6H PRN PRN Reason: Fever And/ Or Pain Loperamide HCl [Imodium A-D] 4 mg PO BID PRN PRN Reason: Loose Stool Calcium/Magnesium/Zinc/Bere D 1 tab PO TID PRN PRN Reason: Cramping traZODone HCL [Desyrel] 50 - 150 mg PO HS PRN PRN Reason: Insomnia Multivitamins, Thera [Multivitamin (formulary)] 1 tab PO DAILY Hyoscyamine Sulfate [Levsin] 0.125 mg PO QID PRN PRN Reason: Gi Upset Docusate [Colace] 100 mg PO BID PRN PRN Reason: Constipation Chlorpheniramine Maleate [Chlor-Trimeton] 4 mg PO Q4H PRN PRN Reason: Allergy Symptoms Changed Thiamine [Vitamin B-1] 500 mg PO DAILY 30 Days #40 tab Discontinued cloNIDine HCL [Catapres] 0.1 - 0.3 mg PO Q4H PRN PRN Reason: BP> 160/100 LORazepam [Ativan] 1 - 2 mg PO Q4H Discharge Medication List Acetaminophen [Tylenol] 650 mg PO Q4H 09/14/23 [History] Calcium/Magnesium/Zinc/Bere D 1 tab PO TID PRN 09/14/23 [History] Chlorpheniramine Maleate [Chlor-Trimeton] 4 mg PO Q4H PRN 09/14/23 [History] Docusate [Colace] 100 mg PO BID PRN 09/14/23 [History] Hyoscyamine Sulfate [Levsin] 0.125 mg PO QID PRN 09/14/23 [History] Ibuprofen [Motrin Ib] 600 mg PO Q6H PRN 09/14/23 [History] Loperamide HCl [Imodium A-D] 4 mg PO BID PRN 09/14/23 [History] Mag Hydrox/Aluminum Hyd/Simeth [Mylanta Maximum Strength Liq] 30 ml PO Q4H PRN 09/14/23 [History] Multivitamins, Thera [Multivitamin (formulary)] 1 tab PO DAILY 09/14/23 [History] ondansetron HCL [Zofran] 8 mg PO Q6H PRN 09/14/23 [History] traZODone HCL [Desyrel] 50 - 150 mg PO HS PRN 09/14/23 [History] LORazepam [Ativan] 1 mg PO Q8HR PRN #6 tab 09/22/23 [Rx] Thiamine [Vitamin B-1] 500 mg PO DAILY 30 Days #40 tab 09/22/23 [Rx] chlordiazePOXIDE HCl [Librium] 25 mg PO BID #6 cap 09/22/23 [Rx] Follow up Appointment(s)/Referral(s): Yassine Marion MD [Medical Doctor] - 1 Week Nonstaff,Physician [Primary Care Provider] - 1-2 days Patient Instructions/Handouts: Alcohol Withdrawal (DC) Activity/Diet/Wound Care/Special Instructions: Please go to [facility] for inpatient substance abuse center. Address: [facility].[address] in [place]; #[phone] Activity limited until follow-up Follow-up with primary care provider and discuss with a possible referral to neurology as you may need an LP and further EMG and nerve study testings Continue with thiamine 500 mg daily for the next 3 days and then 100 mg daily thereafter Keep your scheduled appointment with inpatient alcohol rehab Avoid all alcohol intake and exposure Discharge/Stand Alone Forms: In Substance Abuse Facilities Discharge Disposition: HOME SELF-CARE
== END 2023-09-22 12:49 | disposition home or self-care (01) | DRG 775 ==
LOC: EC 22:16 → 4SSUR 09-14 00:18 → 2SICU 09-14 06:02 → 4SSUR 09-15 22:53
PROVIDERS: ADMIT Hospitalist; ATTEND Hospitalist
PROC: HZ2ZZZZ Detoxification Services for Substance Abuse Treatment (ICD-10-PCS; principal; 2023-09-13)
DX: F10.231 Alcohol dependence with withdrawal delirium (principal); D53.8 Other specified nutritional anemias; D69.59 Other secondary thrombocytopenia; F19.11 Other psychoactive substance abuse, in remission; I10 Essential (primary) hypertension; H53.2 Diplopia; E83.42 Hypomagnesemia; F90.9 Attention-deficit hyperactivity disorder, unspecified type; G62.9 Polyneuropathy, unspecified; Y90.0 Blood alcohol level of less than 20 mg/100 ml; Z87.19 Personal history of other diseases of the digestive system; Z87.820 Personal history of traumatic brain injury; Z86.711 Personal history of pulmonary embolism; Z79.899 Other long term (current) drug therapy
CPT/HCPCS: 36415; 70450; 70553; 71045; 80048; 80053; 80306; 80320; 81003; 82150; 82607; 82746; 83036; 83690; 83735; 83921; 84207; 85025; 86041; 86780; 93005; 96361; 96365; 96366; 96367; 96372; 96375; 96376; 99285